=== PATIENT | male | born 1940 | race Caucasian/White ===

== ENCOUNTER → 2024-01-06 13:54 | Outpatient (REF) | payer MEDICARE, OTHER, SELFPAY | LOC: DHCBC HW 13:54 | PROVIDERS: ATTENDING PHYSICIAN Internal Medicine; FAMILY PHYSICIAN Internal Medicine | DX: I25.10 Atherosclerotic heart disease of native coronary artery without angina pectoris (principal); I10 Essential (primary) hypertension; I44.0 Atrioventricular block, first degree; E11.59 Type 2 diabetes mellitus with other circulatory complications | CPT/HCPCS: 93306 ==

== ENCOUNTER 2024-07-05 07:24 | Inpatient (IN) | payer MEDICARE, OTHER, SELFPAY ==
[2024-07-03 23:10] VITALS: BP 130/64
[2024-07-03 23:21] VITALS: BP 129/68
--- NOTE | 2024-07-03 23:29 | ED.GENMED ---
History of Present Illness
General
Chief Complaint: Chest Pain
Source: patient and spouse
Exam Limitations: none
Time Seen by Provider: 07/03/24 23:14
History of Present Illness
History of Present Illness:
83-year-old male complaining of intermittent chest pain. Started this evening after being outside but occurred at rest. Lasted about an hour waxing and waning. At 1 point did radiate to the left shoulder. Eventually relieved with nitroglycerin
per the . In hindsight he has been complaining of some intermittent episodes the last few days. Currently asymptomatic
Past History
Past History
ED Past Medical History: CAD, HTN, Hypercholesterolemia, NIDDM, Hypothyroidism and Other (Cervical and lumbar DJD)
ED Past Surgical History: Cardiac (PTCA with stent to the RCA 2000)
Social History
Tobacco: Non-smoker
Alcohol: None
Drug: None
Personal:
Living: with family
Employment: Retired
Family History
Family History: Other (Noncontributory)
Review of Systems
Review of Systems
All Other Systems: Not applicable
Constitutional: Denies fever
Respiratory: Denies cough or trouble breathing
Cardiac: Reports palpitations
Phy Exam
Physical Exam
Physical Exam:
GENERAL: Alert and oriented in no apparent distress
EYE: Orbits normal.
NECK: Supple, no thyroid palpable
ENT: Pharynx without erythema
CARDIAC: Regular rate and rhythm without any obvious murmurs.
LUNGS: Clear breath sounds,normal
ABDOMEN: Soft, without focal tenderness or distention
NEUROLOGICAL: Alert and oriented , grossly non-focal
SKIN: Warm and dry, no rash or lesion, no discoloration, skin intact.
MUSCULOSKELETAL: No edema,no deformity.Good color
PSYCH: Normal and appropriate interaction.
Scores
Heart Score for Chest Pain Patients
STEMI patient?: No
History: Moderately Suspicious
ECG: Normal
Age: >/= 65 years
Risk Factors: >/= 3 Risk Factors or History of CAD
Troponin: </= Normal Limit
Heart Score for Chest Pain Patients: 5
Heart Score Risk: 20.3% MACE over next 6 weeks
Course
Orders/Labs/Results
Orders:
Orders
07/03/24 22:59
Electrocardiogram (*1) Urgent
Reason for Study: Chest Pain
EKG- Treatment ONCE
07/03/24 23:29
CXR2 [CR Chest - 2 Views ] Urgent
Comment:
Reason For Exam: cp
07/03/24 23:33
CMP [Comprehensive Metabolic Panel] Urgent
Complete Blood Count/With Diff Urgent
Troponin I Urgent
Abnormal Lab Results
07/03/24
23:33
RBC 3.43 L 10^6/uL
(4.70-6.10)
Hgb 10.9 L g/dL
(13.0-18.0)
Hct 31.2 L %
(39.0-52.0)
MCH 31.8 H pg
(27.0-31.0)
MPV 10.5 H fL
(7.4-10.4)
Monocytes % 11.1 H %
(1.7-9.3)
07/03/24 23:33
Vital Signs
Initial and Last Documented VS:
Initial Vital Signs
Temp Pulse Resp BP Pulse Ox
97.8 F 82 22 130/64 99
07/03/24 23:10 07/03/24 23:10 07/03/24 23:10 07/03/24 23:10 07/03/24 23:10
Last Documented Vital Signs
Temp Pulse Resp BP Pulse Ox
97.8 F 74 14 132/59 99
07/03/24 23:10 07/04/24 00:01 07/04/24 00:01 07/04/24 00:00 07/04/24 00:01
MDM/Problems Addressed
Differential Diagnosis Includes:
Patient with intermittent chest pain for 3 days. Seems typically progressing in frequency and duration this evening. Also relieved with nitroglycerin. Previous cardiac stenting. EKG shows no ischemic changes but does have a junctional with
retrograde conduction. Warrants inpatient management
*Radiology
Radiology exam reviewed: preliminary read by ED provider (Negative)
*Pulse Oximetry
Patient hypoxic: no
*EKG
Interpreted by ED Provider?: Yes
Interpretation: abnormal
Comparison EKG: changes noted
Heart Rate: 88
Rate: normal
Rhythm: other (Junctional with retrograde conduction)
Hubertus: normal axis
Interval: normal interval
QRS Pattern: normal QRS
Ischemia: no ischemia
*Bridges Supervisor Interpretation
Rate: normal
Interpretation: abnormal
Heart Rate: 88
Rhythm: other (Junctional)
*Critical Care Note
Total Time (30-74mins, 75-104mins- exclusive of procedures): Not Applicable
Data Reviewed
Review of Other/Old Records Reveals: Labs, Records and Testing
ED Attending Note
-
Portions of this chart may have been created with voice recognition software.� Occasional wrong word or��sound alike� substitutions may have occurred due to the inherent limitations of voice recognition software.
Discharge Plan
Departure
Prescriptions:
No Action
metoprolol succinate 50 MG tablet extended release 24 hr
50 mg PO HS
pioglitazone 45 MG tablet
45 mg PO DAILY
simvastatin 40 MG tablet
40 mg PO HS
gemfibrozil 600 MG tablet
600 mg PO BID
Patient Comments:
PT TAKES AT 1100 AND 2100
metformin 1,000 MG tablet
1,000 mg PO BID@0800,1700
glipizide 5 MG tablet
5 mg PO DAILY
sitagliptin phosphate [Januvia] 100 MG tablet
100 mg PO DAILY
nitroglycerin 0.4 MG tablet, sublingual
0.4 mg sublingual [id number] PRN (Reason: cp)
pyridoxine (vitamin B6) 100 MG tablet
100 mg PO DAILY
cholecalciferol (vitamin D3) [Vitamin D3] 2,000 UNIT capsule
2,000 unit PO DAILY
Referrals:
Irving Casanova MD [Family Provider] -
Interventions
Interventions:
*Risk Screen - Suicide Last Done: 07/03/24 23:10
*Neglect/Abuse Screening Last Done: 07/03/24 23:10
ED- Fall Risk Assessment Last Done: 07/03/24 23:32
ED- Cardiac Assessment Last Done: 07/03/24 23:32
Discharge Date and Time
Print Language: [place]
[2024-07-03 23:39] LABS: % Eosinophils 1.2 % (0-6); % Immature Granulocytes 0.2 % (0-0.5); % Lymphocytes 29.3 % (20.5-51.1); % Monocytes 11.1 % (1.7-9.3); % Neutrophils 57.2 % (42.2-75.2); Absolute Basophils 0.1 10^3/uL (0-0.2); Absolute Eosinophils 0.1 10^3/uL (0-0.7); Absolute Lymphocytes 1.4 10^3/uL (1.2-3.4); Absolute Monocytes 0.5 10^3/uL (0.1-0.6); Absolute Neutrophils 2.8 10^3/uL (1.4-6.5); Hematocrit 31.2 % (39.0-52.0); Hemoglobin 10.9 g/dL (13.0-18.0); Mean Corp Hgb Conc. 34.9 g/dL (33.0-37.0); Mean Corpuscular Hgb 31.8 pg (27.0-31.0); Mean Platelet Volume 10.5 fL (7.4-10.4); Nucleated Red Blood Cells % 0 % (-); Platelet Count 152 10^3/uL (130-400); Red Blood Cell Count 3.43 10^6/uL (4.70-6.10); Red Cell Dist. Width 13.2 % (11.5-14.5); White Blood Cell Count 4.9 10^3/uL (4.8-10.8)
[2024-07-04] VITALS (19 sets, daily range): BP systolic 110–147; BP diastolic 51–106; BMI 22.9
[2024-07-04 00:06] LABS: Troponin I 0.014 ng/ml
[2024-07-04 00:20] LABS: ALT (SGPT) 12 U/L (0-50); AST (SGOT) 19 U/L (17-59); Albumin 4.5 g/dl (3.5-5.0); Alkaline Phosphatase 63 U/L (38-126); Blood Urea Nitrogen 33 mg/dl (9-20); Calcium 9.3 mg/dl (8.4-10.2); Carbon Dioxide 21 mmol/L (22-30); Chloride 104 mmol/L (98-107); Glucose 226 mg/dl (70-99); Sodium 136 mmol/L (135-145); Total Bilirubin 0.4 mg/dl (0.2-1.3); eGFR 34.57
--- NOTE | 2024-07-04 00:25 | ED.GENMED ---
History of Present Illness
General
Chief Complaint: Chest Pain
Time Seen by Provider: 07/03/24 23:14
History of Present Illness
History of Present Illness:
Intermittent chest pain x 3 days. Tonight's occurred after working outside. Some radiation of the left arm. Relieved with nitroglycerin
Past History
Past History
ED Past Medical History: CAD, HTN, Hypercholesterolemia, NIDDM, Hypothyroidism and Other (Cervical and lumbar DJD)
ED Past Surgical History: Cardiac (PTCA with stent to the RCA 2000)
Social History
Tobacco: Non-smoker
Alcohol: None
Drug: None
Personal:
Living: with family
Employment: Retired
Family History
Family History: Other (Noncontributory)
Review of Systems
Review of Systems
All Other Systems: Not applicable
Respiratory: Denies trouble breathing
Phy Exam
Physical Exam
Physical Exam:
GENERAL: Alert and oriented in no apparent distress
EYE: Orbits normal.
NECK: Supple, no significant adenopathy.
ENT: Pharynx without erythema
CARDIAC: Regular rate and rhythm without any obvious murmurs.
LUNGS: Clear breath sounds,normal
ABDOMEN: Soft, without focal tenderness or distention
NEUROLOGICAL: Alert and oriented , grossly non-focal
SKIN: Warm and dry, no rash or lesion, no discoloration, skin intact.
MUSCULOSKELETAL: No edema,no deformity.Good color
PSYCH: Normal and appropriate interaction.
Scores
Heart Score for Chest Pain Patients
STEMI patient?: No
History: Moderately Suspicious
ECG: Normal
Age: >/= 65 years
Risk Factors: >/= 3 Risk Factors or History of CAD
Troponin: </= Normal Limit
Heart Score for Chest Pain Patients: 5
Heart Score Risk: 20.3% MACE over next 6 weeks
Course
Orders/Labs/Results
Orders:
Orders
07/03/24 22:59
Electrocardiogram (*1) Urgent
Reason for Study: Chest Pain
EKG- Treatment ONCE
07/03/24 23:29
CXR2 [CR Chest - 2 Views ] Urgent
Comment:
Reason For Exam: cp
07/03/24 23:33
CMP [Comprehensive Metabolic Panel] Urgent
Complete Blood Count/With Diff Urgent
Troponin I Urgent
Abnormal Lab Results
07/03/24
23:33
RBC 3.43 L 10^6/uL
(4.70-6.10)
Hgb 10.9 L g/dL
(13.0-18.0)
Hct 31.2 L %
(39.0-52.0)
MCH 31.8 H pg
(27.0-31.0)
MPV 10.5 H fL
(7.4-10.4)
Monocytes % 11.1 H %
(1.7-9.3)
Carbon Dioxide 21 L mmol/L
(22-30)
BUN 33 H mg/dl
(9-20)
Creatinine 1.9 H mg/dL
(0.7-1.3)
Glucose 226 H mg/dl
(70-99)
07/03/24 23:33
07/03/24 23:33
Vital Signs
Initial and Last Documented VS:
Initial Vital Signs
Temp Pulse Resp BP Pulse Ox
97.8 F 82 22 130/64 99
07/03/24 23:10 07/03/24 23:10 07/03/24 23:10 07/03/24 23:10 07/03/24 23:10
Last Documented Vital Signs
Temp Pulse Resp BP Pulse Ox
97.8 F 74 14 132/59 99
07/03/24 23:10 07/04/24 00:01 07/04/24 00:01 07/04/24 00:00 07/04/24 00:01
MDM/Problems Addressed
Differential Diagnosis Includes:
Intermittent chest pain more progressive today. Has been going on for 3 days. Relieved with nitroglycerin. Some radiation of the left arm. Suspicious for angina. Admission for further care
*Critical Care Note
Total Time (30-74mins, 75-104mins- exclusive of procedures): Not Applicable
Data Reviewed
Review of Other/Old Records Reveals: Labs, Records and Testing
ED Attending Note
-
Portions of this chart may have been created with voice recognition software.� Occasional wrong word or��sound alike� substitutions may have occurred due to the inherent limitations of voice recognition software.
Discharge Plan
Departure
Patient Disposition: Admit
Date of Disposition: 07/04/24
Time of Disposition: 00:25
Admit to: Telemetry
Presentation/result/management discussed w/ accepting MD/DO: Hospitalist
Discharge Problem:
Possible unstable angina, History of cardiac stenting, Renal insufficiency
Prescriptions:
No Action
metoprolol succinate 50 MG tablet extended release 24 hr
50 mg PO HS
pioglitazone 45 MG tablet
45 mg PO DAILY
simvastatin 40 MG tablet
40 mg PO HS
gemfibrozil 600 MG tablet
600 mg PO BID
Patient Comments:
PT TAKES AT 1100 AND 2100
metformin 1,000 MG tablet
1,000 mg PO BID@0800,1700
glipizide 5 MG tablet
5 mg PO DAILY
sitagliptin phosphate [Januvia] 100 MG tablet
100 mg PO DAILY
nitroglycerin 0.4 MG tablet, sublingual
0.4 mg sublingual [id number] PRN (Reason: cp)
pyridoxine (vitamin B6) 100 MG tablet
100 mg PO DAILY
cholecalciferol (vitamin D3) [Vitamin D3] 2,000 UNIT capsule
2,000 unit PO DAILY
Referrals:
Irving Casanova MD [Family Provider] -
Interventions
Interventions:
*Risk Screen - Suicide Last Done: 07/03/24 23:10
*Neglect/Abuse Screening Last Done: 07/03/24 23:10
ED- Fall Risk Assessment Last Done: 07/03/24 23:32
ED- Cardiac Assessment Last Done: 07/03/24 23:32
Discharge Date and Time
Print Language: FRISIAN
--- NOTE | 2024-07-04 03:14 | HPS.HSE ---
Family Physician
-
Family Physician: Irving Casanova
Chief Complaint
-
Chest Pain
History of Present Illness
83yo M with PMH CAD s/p STEVEN to RCA (2000), HTN, HLD, DM2, Hypothyroidism, GERD who presents to ER with chest pain. Pt is czech speaking. at bedside aids in HPI. Pt was doing outdoor simple garden work around 5pm. After coming inside he felt
left sided chest pain radiation to left arm around 8-8:30pm. Pt took SL nitro which relieved symptoms. Pt does state he has felt his heart racing on and off over the last 3 days. Denies associated SOB, dizziness/LH, diaphoresis, N/V. Denies LE
edema. No recent med changes. does state he occasionally forgets his medications or accidentally takes two doses of one. Last Nuc Stress 07/2023 (-) with no further recs as per cryptologic technician technical Dr. Doherty
ER course: Pt presents with V.S.S. Hgb 10.9 g/dL. Na 136. BUN/Cr 33/1.9, BG 226. Trop 0.014. EKG junctional rhythm @ 88bpm, no ST/Twave changes. Ordered ASA 324mg.
Medical History
Past Medical History
Past Medical History: Reports Other (CAD s/p STEVEN to RCA (2000), HTN, HLD, DM2, Hypothyroidism, GERD )
Past Surgical History: Reports Other (RCA stent (2000))
Social History
Tobacco: Former Smoker (Quit smoking 40 yrs ago)
Alcohol: None
Drug: None
Personal:
Living: With Family
Family History
Family History: Other (Mother with CAD s/p NC. Father with CAD and possible CVA)
Allergies / Home Medications
Allergies reflects when Allergies were last updated in [facility].
Home Medications with original date entered in [facility]
Allergy/Medication List:
Allergies
Allergy/AdvReac Type Severity Reaction Status Date / Time
peanut Allergy Pharmacy Verified 07/03/24 23:13
to Review
Home Medications
gemfibrozil 600 mg tablet 600 mg PO BID 10/15/12
glipizide 5 mg tablet 5 mg PO DAILY 10/15/12
metformin 1,000 mg tablet 1,000 mg PO DAILY 10/15/12
metoprolol succinate 50 mg tablet,extended release 24 hr 50 mg PO HS 10/15/12
pioglitazone 45 mg tablet 45 mg PO DAILY 10/15/12
sitagliptin phosphate 100 mg tablet (Januvia) 100 mg PO DAILY 10/15/12
cholecalciferol (vitamin D3) 50 mcg (2,000 unit) capsule (Vitamin D3) 2,000 unit PO DAILY 12/28/17
nitroglycerin 0.4 mg sublingual tablet 0.4 mg sublingual [id number] PRN cp 12/28/17
pyridoxine (vitamin B6) 100 mg tablet 100 mg PO DAILY 12/28/17
amlodipine 5 mg tablet 5 mg PO DAILY 07/04/24
ascorbic acid (vitamin C) 500 mg tablet (Vitamin C) 500 mg PO DAILY 07/04/24
aspirin 81 mg tablet 81 mg PO DAILY 07/04/24
cyanocobalamin (vitamin B-12) 100 mcg tablet 100 mcg PO DAILY 07/04/24
famotidine 40 mg tablet 40 mg PO DAILY 07/04/24
ferrous sulfate 325 mg (65 mg iron) tablet 325 mg PO DAILY 07/04/24
levothyroxine 50 mcg tablet 50 mcg PO DAILY 07/04/24
lisinopril 5 mg tablet 5 mg PO DAILY 07/04/24
pantoprazole 20 mg tablet,delayed release 20 mg PO DAILY 07/04/24
rosuvastatin 40 mg tablet 40 mg PO DAILY 07/04/24
vitamin A 3,000 mcg (10,000 unit) capsule 150 mcg PO DAILY 07/04/24
Review of Systems
-
A 12 point ROS was completed and negative except as noted: Yes
Physical Exam
Vital Signs
Vital Signs
Temp Pulse Resp BP Pulse Ox
98 F 61 15 129/56 97
07/04/24 02:00 07/04/24 03:00 07/04/24 03:00 07/04/24 03:00 07/04/24 03:00
Physical Exam
General: Well Developed, Well Nourished and No Apparent Distress
HEENT: NormoCephalic, Moist mucous membranes and Atraumatic
Respiratory: Clear
Cardiac: S1/S2, Regular Rhythm and Other (No reproducible chest tenderness. ); No Murmur or Rub
GI: Soft, Non Tender, Non Distended and Normal Bowel Sounds; No Organomegaly
Rectal: Deferred by Provider
Genito-urinary: No costovertebral tender; No [place]
Musculoskeletal: No Clubbing, No Cyanosis and No Edema
Skin: No Rash
Neuro: Awake, Alert, Oriented, AO x 3, No Motor Deficits and Nonfocal/grossly intact
Psych: Calm
Laboratory Results
-
07/03/24 23:33
07/03/24 23:33
Laboratory Results
Total Bilirubin 0.4 mg/dl (0.2-1.3) 07/03/24 23:33
AST 19 U/L (17-59) 07/03/24 23:33
ALT 12 U/L (0-50) 07/03/24 23:33
Alkaline Phosphatase 63 U/L (38-126) 07/03/24 23:33
Troponin I 0.014 ng/ml 07/03/24 23:33
Data Reviewed
-
Diagnostic Radiology: Image Personally Visualized and interpreted
Medical Tests (Nuc Med, Echo, EKG etc): Image Personally Visualized and interpreted
Lab Data: Labs Reviewed by me
Old Records: Reviewed
Impression/Plan
-
Chest Pain / Hx CAD s/p Stent / HTN / HLD
- Pt reports left sided CP radiation to left shoulder with heart racing sensation after gardening work
- No other anginal equivalents. Appears atypical
- Nuc Stress 07/2023 (-) ischemia
- Last TTE 12/2023: Normal left ventricular size, wall thickness and systolic function.
LV ejection fraction is 60-65% . Mild mitral regurgitation. Compared to the previous0 05/13/2021 not appreciated on the current study diastolic dysfunction and increased filling pressures not reported on the current study
- S/P SL Nitro with relief. Continue prn
- S/P ASA 324mg. Continue 81mg daily
- Continue home amlodipine, BB, statin, gemfibrozil. LICO-I held 2/2 [place]
- Check Lipids/A1C
- NPO for possible ischemic eval. Cards consulted
Elevated Serum Creat
- BUN/Cr 33/1.9. Unclear baseline. Considerations include progression of CKD vs [place]
- Previous Cr 1.2-1.7
- Check UA and bladder scan for completeness
- NS @ 100cc/hr and trend.
- Holding nephrotoxics: LICO-I/Metformin/Glipizide
Hyperglycemia/DM2
- BG 226 on admission. reports A1C was 'fine' 1 month ago with PCP
- Check A1C. SSI/accuchecks
- Glipizide and Metformin held 2/2 [place]
- Continue home actos and januvia
Anemia - Hgb stable. Continue home iron supplementation.
Hypothyroidism - Continue home synthroid.
GERD - stable on pepcid.
DVT Ppx: Lovenox
Diet: NPO pending cards eval
Code Status: Full Code
[2024-07-04] MEDS: LOW STRENGTH ASPIRIN 324 MG PO (04:08)
[2024-07-04] MEDS: NSS 1000 IV ×2 (04:10→06:24)
[2024-07-04 05:09] LABS: Glucose - Point of Care 84 mg/dl (70-99)
[2024-07-04 05:55] LABS: HDL Cholesterol 83 mg/dl; LDL Cholesterol, Calculated 58 mg/dl; Total Cholesterol 154 mg/dl (50-199); Triglyceride 65 mg/dl (10-149); Very Low Density Lipoprotein 13 mg/dl (0-30)
[2024-07-04 06:07] LABS: Troponin I 0.014 ng/ml
[2024-07-04] MEDS: SYNTHROID 50 MCG PO (06:21)
--- NOTE | 2024-07-04 07:54 | PTCARENOTE ---
Pt admitted to unit from ED with IV fluids infusing. Pt ambulated to bed with nursing staff. Pt denies chest pain, SOB, difficulty breathing, dizziness, and lightheadedness. at bedside aids in admission. AAXO3. VS: Temp 97.3, Pulse 69, BP
122/68, Resp Rate 16, and O2 99 on RA. Pt oriented with call nguyen in reach. Plan of care ongoing.
--- NOTE | 2024-07-04 08:10 | CON.CAR ---
Addendum entered and electronically signed by Boris Dixon MD 07/04/24 09:45:
I saw and examined the patient.
The CUSTOMER ENGINEER's note was reviewed and I agree with the note.
Comment: 83-year-old male with coronary artery disease (RCA stenting and RPDA angioplasty 2000, moderate nonobstructive disease on cath in November 2017), first-degree AV block, hypertension, dyslipidemia, type 2 diabetes mellitus, CKD3a, and anemia
of chronic disease who presented with exertional chest pain yesterday relieved with nitro. This recurred when walking into the hospital. Currently he is chest pain-free. EKG showed sinus rhythm with primary AV conduction delay and PVC. First
troponin 0.14 next is pending. On exam he has a regular rate and rhythm normal S1-S2 lungs are clear to auscultation bilaterally abdomen is soft and nontender. Labs are notable for creatinine of 1.9. History concerning for progressive angina.
Recommend proceeding to cardiac catheterization given recent angelo with prior infarct and no ischemia. He is agreeable. Patient recieving IVF which we will continue for prehydration. Check echo.
Cath 11/2017:
CORONARY ANGIOGRAPHY
Dominance: Right
Left Main: Normal
LAD: The LAD is moderately calcified with long 30% proximal stenosis and focal 50-60% mid stenosis. The remainder of the LAD system has mild luminal disease.
Circumflex: Mild calcification with focal 30% proximal stenosis and otherwise mild luminal irregularities
RCA: Dominant and moderately calcified vessel with widely patent proximal and distal RCA stents with no restenosis (BMS 2000). There are tandem 50% mid RCA lesions. There is 40-50% ostial stenosis of the moderate-sized PDA. The balloon angioplasty
site in the RPDA from 2000 remains widely patent
Original Note:
Consultation
Consultation Request
Date/Time Consultation Requested: 07/04/2024 04:45
Date/Time Consultation Performed: 07/04/2024 08:30
Requesting Provider: Dr. Richardson
Performing Provider: BETHANIE Calhoun for Dr. Dixon
Reason for Consultation: Chest pain
Medical History
-
Chief Complaint: Chest pain
History of Present Illness:
Jhon Funk is an 83-year-old male with coronary artery disease (RCA stenting and RPDA angioplasty 2000), first-degree AV block, hypertension, dyslipidemia, type 2 diabetes mellitus, CKD3a, and anemia of chronic disease who presented to the
emergency department with a chief complaint of chest pain. He was gardening outdoors when he had left sided chest pressure. He went inside and took a sublingual nitroglycerin. He got full relief. He had never required nitroglycerin before so he
presented to the emergency department he denies associated symptoms of shortness of breath, dizziness, diaphoresis, and nausea. While presenting to the emergency department, he had left arm pain. Cardiology has been consulted. He has been chest
pain-free since admission. His EKG is stable. His troponin remains flat.
The patient speaks Bulgarian. I offered professional translation services but he preferred to use his .
Past Medical History
Past Medical History: CAD, HTN, Hypercholesterolemia, NIDDM and Renal Failure (CKD)
Social History
Tobacco: Former Smoker
Alcohol: None
Drug: None
Personal:
Living: With Family
Employment: Retired
Family History
Family History: Reviewed & Not Pertinent
Allergies / Home Medications
Allergy/AdvReac Type Severity Reaction Status Date / Time
peanut Allergy Pharmacy Verified 07/03/24 23:13
to Review
pneumococcal vaccine AdvReac Unknown Verified 07/04/24 06:00
�Medication �Instructions �Recorded �Confirmed �Type
gemfibrozil 600 mg tablet 600 mg PO BID 10/15/12 07/04/24 History
glipizide 5 mg tablet 5 mg PO DAILY 10/15/12 07/04/24 History
metformin 1,000 mg tablet 1,000 mg PO DAILY 10/15/12 07/04/24 History
metoprolol succinate 50 mg 50 mg PO HS 10/15/12 07/04/24 History
tablet,extended release 24 hr
pioglitazone 45 mg tablet 45 mg PO DAILY 10/15/12 07/04/24 History
sitagliptin phosphate 100 mg 100 mg PO DAILY 10/15/12 07/04/24 History
tablet (Januvia)
cholecalciferol (vitamin D3) 50 2,000 unit PO DAILY 12/28/17 07/04/24 History
mcg (2,000 unit) capsule (Vitamin
D3)
nitroglycerin 0.4 mg sublingual 0.4 mg sublingual [id number] PRN cp 12/28/17 07/04/24 History
tablet
pyridoxine (vitamin B6) 100 mg 100 mg PO DAILY 12/28/17 07/04/24 History
tablet
amlodipine 5 mg tablet 5 mg PO DAILY 07/04/24 07/04/24 History
ascorbic acid (vitamin C) 500 mg 500 mg PO DAILY 07/04/24 07/04/24 History
tablet (Vitamin C)
aspirin 81 mg tablet 81 mg PO DAILY 07/04/24 07/04/24 History
cyanocobalamin (vitamin B-12) 100 100 mcg PO DAILY 07/04/24 07/04/24 History
mcg tablet
famotidine 40 mg tablet 40 mg PO DAILY 07/04/24 07/04/24 History
ferrous sulfate 325 mg (65 mg 325 mg PO DAILY 07/04/24 07/04/24 History
iron) tablet
levothyroxine 50 mcg tablet 50 mcg PO DAILY 07/04/24 07/04/24 History
lisinopril 5 mg tablet 5 mg PO DAILY 07/04/24 07/04/24 History
pantoprazole 20 mg tablet,delayed 20 mg PO DAILY 07/04/24 07/04/24 History
release
rosuvastatin 40 mg tablet 40 mg PO DAILY 07/04/24 07/04/24 History
vitamin A 3,000 mcg (10,000 unit) 150 mcg PO DAILY 07/04/24 07/04/24 History
capsule
Review of Systems
-
History Source: Patient
All other systems: Negative unless noted
Constitutional: No Symptoms
EENT: No Symptoms
Respiratory: No Symptoms
Cardiac: No Symptoms
Abdomen/GI: No Symptoms
: No Symptoms
Musculoskeletal: No Symptoms
Skin: No Symptoms
Neurological: No Symptoms
Endocrine: No Symptoms
Hematologic/Lymphatic: No Symptoms
Physical Exam
Vital Signs
Temp Pulse Resp BP Pulse Ox
97.4 F 65 20 138/58 98
07/04/24 07:44 07/04/24 07:44 07/04/24 07:44 07/04/24 07:44 07/04/24 07:44
Lab Results
07/03/24 23:33
07/03/24 23:33
Troponin I 0.014 ng/ml 07/04/24 05:08
Physical Exam
General: Well Developed, Well Nourished, No Apparent Distress and Comfortable
HEENT: Normocephalic, Anicteric and Moist Mucous Membranes
Respiratory: Clear and Non Labored Respirations
Cardiac: S1/S2 and Regular Rhythm
Breast: Deferred by me
GI: Non Tender, Non Distended and Normal Bowel Sounds
Rectal: Deferred by Provider
Genito-urinary: No Costovertebral Tender
Musculoskeletal: No Clubbing, No Cyanosis and No Edema
Skin: Warm and Dry
Neuro: AO x 3
Hematologic/Lymphatic: No Lymphadenopathy
Psych: Calm
Impression / Plan
-
Progressive angina
-Chest pressure after gardening, relieved by SL nitroglycerin
-Currently chest pain-free
-Troponin flat
-Continue ASA
CAD
-RCA stent & RPDA angioplasty (2000)
-Continue ASA, beta richa and statin
HTN, BP at goal, continue current medical therapy
HLD, LDL 58 on rosuvastatin & gemfibrozil
CKD Stage 3, Bun/Creatinine 17/1.47 in Dec, 2023
NIDDM, Hgba1c 8.0% in November,, update Hgba1c
Data Reviewed
-
EKG: Report Reviewed by me (Sinus rhythm, first degree AV block, PACs, rate 66)
Medical Tests (Nuc Med, Echo etc): Report Reviewed by me (Prior echocardiogram as above)
Labs: Labs Reviewed by me
Old Records: Reviewed
[2024-07-04 08:33] LABS: Urine Albumin Negative (Neg - Trace); Urine Bilirubin Negative (Negative); Urine Character Clear (Clear); Urine Color Yellow; Urine Glucose 3+ (Negative); Urine Ketone Negative (Negative); Urine Leukocyte Negative (Negative); Urine Nitrite Negative (Negative); Urine Occult Blood Negative (Negative); Urine Urobilinogen Negative (Neg - 1+); Urine pH 6.5 (5.0-9.0)
[2024-07-04 09:17] LABS: Troponin I < 0.012 ng/ml
[2024-07-04] MEDS: VITAMIN B-12 PO (09:29)
[2024-07-04] MEDS: VITAMIN B-6 PO (09:30)
[2024-07-04] MEDS: VITAMIN C PO (09:30)
[2024-07-04] MEDS: VITAMIN D3 (cholecalciferol) PO (09:30)
[2024-07-04] MEDS: PEPCID PO (09:30)
[2024-07-04] MEDS: LOPID PO (09:30)
[2024-07-04] MEDS: CRESTOR PO (09:31)
[2024-07-04] MEDS: FEOSOL PO (09:31)
[2024-07-04] MEDS: NORVASC 5 MG PO (09:33)
[2024-07-04] MEDS: PROTONIX 20 MG PO (09:33)
[2024-07-04] MEDS: HEPARIN 5000 UNITS SC (09:33)
[2024-07-04 10:57] LABS: Glycohemoglobin (HgbA1c) 7.9 % (4.0-5.6)
[2024-07-04 11:29] LABS: Glucose - Point of Care 96 mg/dl (70-99)
--- NOTE | 2024-07-04 12:00 | W.PN.HOSP.TC ---
Today's Communication/Plan
-
Echocardiogram
BMP
IV fluids
Cardiac catheterization
Assessment / Plan
Assessment / Plan
Gen-AAOx3, NAD
HEENT-NC, AT, anicteric, clear oral mm
Neck-supple
CV-reg, no M, +S1/S2
Lungs-clear B/L
Abd-soft, NT, ND
Ext-no edema
Musculoskeletal-no cyanosis, clubbing
Skin-warm and dry
Neuro-grossly non-focal
Psych-calm, cooperative
Unstable angina -hemodynamically stable. Symptoms resolved. Troponins negative. N.p.o. for cardiac catheterization. Appreciate cardiology input.
CAD -with prior stenting to RCA in 2000.
CKD 3B -creatinine 1.9 on admission, suspect at baseline. Check creatinine today, monitor closely given plans for cardiac catheterization. Continue IV fluids.
Essential hypertension -stable.
DM2 with hyperglycemia -hemoglobin A1c 7.9%. We discussed the importance of tighter glucose control in light of his CAD and presentation with angina. He uses glipizide, metformin, Sitagliptin at home. Hold oral agents, use sliding scale insulin
for now.
Hyperlipidemia -continue rosuvastatin.
Hypothyroidism -continue levothyroxine.
Chronic normocytic anemia -will need outpatient follow-up.
GERD
Full code
Updated at the bedside. Patient speaks Farsi. 50 minutes spent reviewing records, speaking with patient and , discussing with other staff.
Anticipated Discharge: 24 - 48 hours
Subjective/Interval History
-
Date of Service: July 04, 2024
Patient seen/examined. No further chest pain in the hospital. at bedside. No complaints.
Objective Data
-
Labs:
Laboratory Results
07/03/24 07/04/24
23:33 11:32
Sodium 136 Pending
Potassium 5.0 Pending
Chloride 104 Pending
Carbon Dioxide 21 L Pending
BUN 33 H Pending
Creatinine 1.9 H Pending
Glucose 226 H Pending
Calcium 9.3 Pending
Total Bilirubin 0.4
AST 19
ALT 12
Alkaline Phosphatase 63
Vital Signs:
Vital Signs
Temp Pulse Resp BP Pulse Ox
98.2 F 76 18 147/67 98
07/04/24 11:18 07/04/24 11:18 07/04/24 11:18 07/04/24 11:18 07/04/24 11:18
I&O
07/03/24 07/04/24 07/05/24
06:59 06:59 06:59
Intake Total 220 / 220
Balance 220 / 220
Review of Systems
-
History Source: Patient
All other systems: Reviewed and negative
--- NOTE | 2024-07-04 12:24 | CM ---
Addendum entered by Ariana Newberry 07/04/24 15:38:
Patient needs DAMON form signed.
Original Note:
Patient seen at bedside with .
IA completed. Obtained by as patient primarily speaks Farsi
Dx: chest pain - went for echo & cardiac cath today.
Lives with in 2 story home 1 step into home & 12 steps too bed/bath.
Dr. Dyer spoke with & patiient in Farsi
CM to follow for any anticipated needs.
PCP: Marcial Washington
Pharmacy: [facility], [address], [place]
PLAN: Discharge to home when stable.
[2024-07-04 12:31] LABS: Blood Urea Nitrogen 27 mg/dl (9-20); Calcium 9.4 mg/dl (8.4-10.2); Carbon Dioxide 22 mmol/L (22-30); Chloride 106 mmol/L (98-107); Estimated Creatinine Clearance 37 ml/min; Glucose 94 mg/dl (70-99); Potassium 4.4 mmol/L (3.5-5.1); Sodium 137 mmol/L (135-145); eGFR 42.49
--- NOTE | 2024-07-04 13:51 | ITS.CL.ANGIO ---
Clinical Leader - Angioplasty
Angioplasty
Procedure Report:
CARDIAC CATHETERIZATION REPORT
Date of Procedure: 07/04/2024
Referring: Mary Dixon M.D.
INDICATION: Unstable angina/acute coronary syndrome.
PROCEDURE:
1. Left heart catheterization.
2. Coronary angiography.
3. Successful IVUS guided PCI of the proximal LAD.
ACCESS:
6 [place] right radial artery using a modified Seldinger technique under ultrasound guidance.
CATHETERS:
1. 6 [place] JR 5.
2. 5 Trin[place] JL 3.5.
3. 6 [place] EBU 3.5 guiding catheter.
HEMODYNAMIC DATA
Weight (kg): 73.9
AO (s/d/x, mmHg): 111/53/78
LV (s/x mmHg): 111/10
LEFT VENTRICULOGRAPHY: Not performed.
CORONARY ANGIOGRAPHY
Dominance: Right.
Left Main: Short, bifurcating vessel. There is no obvious atherosclerotic disease.
LAD: Normal size vessel giving rise to 1 significant diagonal. There is a culprit, hazy, 90% lesion in the proximal margin of the LAD, less than 2 mm from the LAD ostium. There is a modest length, 40% lesion within the proximal LAD. There is a
discrete, 40% lesion in the mid LAD, after the origin of the diagonal. There are minor luminal irregularities elsewhere.
Ramus: Congenitally absent.
Circumflex: Normal size, nondominant vessel that is essentially a single large obtuse marginal. The obtuse marginal bifurcates into a larger upper branch and a medium size lower branch. There is a 20-30% lesion in the proximal circumflex,
immediately preceding the bifurcation and the obtuse marginal.
RCA: Large size, dominant vessel with an anterior takeoff that could not be selectively engaged. There is a 50% lesion in the ostium of the vessel. There is a patent stent in the proximal RCA with 10-20% proximal in-stent restenosis. There is
an eccentric, 70% lesion in the mid RCA, juxtaposed to the origin of the acute marginal. There are tandem 30 and 40% lesions throughout the remainder of the distal RCA and into the RPDA. A patent stent is observed from the distal RCA into the
right posterior lateral branch, jailing the origin of the RPDA but maintaining JESSE-3 flow throughout.
INTERVENTION(S)
1. Successful IVUS guided PCI of the 90% proximal LAD lesion (Medtronic [place] 3.0 x 18 STEVEN, postdilated with a 3.25 NC balloon) with reduction in stenosis to 0%, maintaining JESSE-3 flow.
Narrative:
The decision was made to proceed with percutaneous coronary intervention. The diagnostic catheter was removed over a wire and a 6Fr EBU 3.5 guiding catheter was advanced to the aortic root and seated in the left main coronary artery. Additional
heparin was given and a Power Turn Flex wire was advanced into the distal LAD. The 90% proximal LAD lesion was predilated with a 2.0 x 12 semi-compliant balloon to 12 ga.
The decision was made to perform intracoronary imaging. An IVUS catheter was advanced through the guiding catheter and into the ostium of the artery. Ring down was performed once the imaging crystal was no longer inside of the guiding catheter. The
IVUS catheter was advanced into the proximal LAD, beyond the lesion in question. Intravascular ultrasound was performed in a retrograde fashion using a slow pullback. Intracoronary imaging demonstrated an island of normal coronary tissue beyond the
lesion in question with extension of the lesion to the true ostium of the LAD.
The IVUS catheter was removed and a Medtronic [place] 3.0 x 18 drug-eluting stent was advanced. Meticulous care was taken while positioning the stent. There was significant translational motion given the patient's heartbeat and breathing.
The stent was deployed at 12 atmospheres. The stent balloon was removed. A 3.25 x 12 noncompliant balloon was advanced into the stent and the distal stent was postdilated to 15 atmospheres. The proximal stent margin was postdilated to 18 ag.
IVUS was repeated demonstrating excellent stent expansion and apposition with no evidence of dissection. IVUS did confirm that part of the circumflex ostium was jailed by the stent, but this was an incomplete jailing with JESSE-3 flow down the
vessel. The IVUS catheter was withdrawn.
Angiography was performed in orthogonal views, confirming good stent expansion and an excellent angiographic result. The coronary wire was withdrawn and the guide was disengaged from the artery. The catheter was removed over a standard J-wire.
Closure Device: Vascular band.
Radiation (mGy): 972.52
DAP (cm2.Gy): 74.1673
Fluoroscopy time (minutes): 21.3
Sedation time (minutes): 82
CONCLUSIONS
1. Right dominant circulation with an RCA with an anterior takeoff that could not be selectively engaged with a 50% lesion in the ostium, patent proximal stent with 10-20% in-stent restenosis, and eccentric 70% mid RCA lesion, luminal
irregularities throughout the remainder of the RCA with a patent stent jailing the RPDA but maintaining JESSE-3 flow, a 20-30% lesion in the proximal circumflex at the bifurcation of the obtuse marginal, a 40% lesion in the mid LAD after the origin
of the primary diagonal and a culprit, 90% proximal LAD lesion, status post successful IVUS guided PCI (Medtronic [place] 3.0 x 18 STEVEN, postdilated with a 3.25 NC balloon) with reduction in stenosis to 0%, maintaining JESSE-3 flow.
2. Normal filling pressures (LVEDP = 10 mmHg at 73.9 kg).
RECOMMENDATIONS:
1. Expectant management after cardiac catheterization via right radial approach.
2. Limited weight bearing on the right for one week.
3. Dual antiplatelet therapy with aspirin and ticagrelor for at least 12 months, followed by aspirin indefinitely.
4. Guideline directed medical therapy as hemodynamics will tolerate. No role for diuretics at this time.
5. Aggressive secondary prevention with high-dose, high potency statin. Goal LDL <55.
6. Echocardiogram ordered and pending.
7. Referral to cardiac rehab.
8. Consideration for staged PCI of the RCA, depending on symptoms and in consultation with outpatient primary cardiology.
Copy to: Jimenez Phipps M.D., Ph.D., Irving Casanova M.D.
Dwayne Veloz DO, FACC, FACP
--- NOTE | 2024-07-04 14:30 | PTCARENOTE ---
Rec'd report from Jennifer in the collaborating supervising physician; Rec'd pt from collaborating supervising physician AAOx3 w/no c/o CP or SOB. Pt w/R radial band in place w/no signs or symptoms of bleeding or hematoma. VS stable w/HR in the 70's & most recent BP 129/56. Pt is SR on telemetry
monitoring. Pt's speaks Farsi but able to make needs known using varnish melter & pt's spouse, who speaks very good British at bedside. Pt's fingerstick glucose was 104. Pt asking for some apple juice & placed lunch order for pt. Pt w/call nguyen
within reach & plan of care ongoing.
[2024-07-04 14:34] LABS: Glucose - Point of Care 104 mg/dl (70-99)
[2024-07-04] MEDS: HEPARIN SC (16:28)
--- NOTE | 2024-07-04 18:12 | PTCARENOTE ---
Pt w/2nd small puncture site above R band placement, which has oozed slightly since pt arrived to floor. As air was being removed from band that 2nd site had increasing swelling & oozing. All air removed from band & while band was attempted to be
removed cath insertion site started to squirt blood. Manual pressure applied immediately & bleeding continued after 15 mins of manual pressure. R band replaced rapidly w/8 cc of air with band covering cath puncture site and secondary wound
simultaneously. Bleeding controlled at this time. Pt's RUE elevated on 2 pillows. Pt advised to limit movement of R wrist while band is in place. Call nguyen within reach & spouse at bedside. Plan of care ongoing.
[2024-07-04 19:29] LABS: Glucose - Point of Care 220 mg/dl (70-99)
[2024-07-04] MEDS: NOVOLOG FLEXPEN-LOW RESISTANCE 2 UNITS SC (19:58)
[2024-07-04] MEDS: LOPID 600 MG PO (20:33)
[2024-07-04 22:34] LABS: Glucose - Point of Care 172 mg/dl (70-99)
[2024-07-04] MEDS: TOPROL XL 50 MG PO (22:38)
[2024-07-04] MEDS: BRILINTA 90 MG PO (22:39)
[2024-07-05 02:35] VITALS: BP 125/59
[2024-07-05 02:55] LABS: Hematocrit 33.9 % (39.0-52.0); Hemoglobin 11.9 g/dL (13.0-18.0); Mean Corp Hgb Conc. 35.1 g/dL (33.0-37.0); Mean Corpuscular Hgb 32.4 pg (27.0-31.0); Mean Corpuscular Volume 92.4 fL (80.0-94.0); Platelet Count 160 10^3/uL (130-400); Red Blood Cell Count 3.67 10^6/uL (4.70-6.10); Red Cell Dist. Width 12.9 % (11.5-14.5)
[2024-07-05 03:15] LABS: Blood Urea Nitrogen 25 mg/dl (9-20); Calcium 9.7 mg/dl (8.4-10.2); Carbon Dioxide 24 mmol/L (22-30); Chloride 106 mmol/L (98-107); Estimated Creatinine Clearance 45 ml/min; Glucose 107 mg/dl (70-99); Potassium 4.7 mmol/L (3.5-5.1); Sodium 139 mmol/L (135-145); eGFR 54.51
--- NOTE | 2024-07-05 03:30 | PTCARENOTE ---
Rec'd pt at change of shift post heart cath. Pt on heart monitor in NSR with 1st degree heart-block and occasional monomorphic PVC's. 2nd attempt at removing right radial-band successful. Ecchymosis noted on right wrist from procedure, no
hematoma noted. Pulses present and equal in both upper extremities. Rn educated pt and to watch for bleeding at site and call immediately for help if detected. RN placed pt on bed alarm for pt safety. Pt resting in bed with RUE elevated and
call nguyen within reach. Plan of care ongoing.
[2024-07-05 06:00] VITALS: BMI 22.5
[2024-07-05] MEDS: SYNTHROID 50 MCG PO (06:18)
[2024-07-05 06:56] VITALS: BP 142/51
--- NOTE | 2024-07-05 07:29 | W.PN.UPDATE ---
Update Note
Progress Note Update
POST PCI FOLLOW UP
07/04/24 - Successful IVUS guided PCI of the 90% proximal LAD lesion (Medtronic [place] 3.0 x 18 STEVEN, postdilated with a 3.25 NC balloon)
No CP, SOB
Rad site moderate ecchymosis, no HT, good pulse
tele - SR/SB 1deg AVB, multiple PVC's and 7b NSVT o/n
DAPT ASA/Brilinta - CM to eval cost
07/05/24 02:33
07/05/24 02:33
Plan: Hold Metformin 48 hours post procedure
f/u Cardiology 08/04 1pm
[2024-07-05 07:55] LABS: Glucose - Point of Care 112 mg/dl (70-99)
[2024-07-05] MEDS: NOVOLOG FLEXPEN-LOW RESISTANCE SC (08:27)
--- NOTE | 2024-07-05 08:29 | PTCARENOTE ---
Assumed care of pt from prev nsg shift; Pt AAOx3, appears mildly forgetful this am w/no c/o CP or SOB. Pt placed on bed alarm overnight for safety. Pt w/R radial site w/dressing C/D/I w/no signs or symptoms of bleeding or hematoma; site is very
ecchymotic. VS stable w/HR in the 60's & most recent BP 142/51. Pt is SR w/1st deg AV block on telemetry monitoring. Pt's speaks Farsi but able to make needs known using anatomy and physiology instructor & pt's spouse, who speaks very good Bruneian & is present at bedside.
D/C planning discussed w/pt & spouse. Pt w/call nguyen within reach & plan of care ongoing.
[2024-07-05] MEDS: VITAMIN B-6 100 MG PO (08:59)
[2024-07-05] MEDS: VITAMIN C 500 MG PO (08:59)
[2024-07-05] MEDS: VITAMIN D3 (cholecalciferol) 50 MCG PO (08:59)
[2024-07-05] MEDS: FEOSOL 325 MG PO (08:59)
[2024-07-05] MEDS: NORVASC 5 MG PO (08:59)
[2024-07-05] MEDS: VITAMIN B-12 100 MCG PO (08:59)
[2024-07-05] MEDS: LOW STRENGTH ASPIRIN 81 MG PO (08:59)
[2024-07-05] MEDS: PEPCID 40 MG PO (08:59)
[2024-07-05] MEDS: LOPID 600 MG PO (08:59)
[2024-07-05] MEDS: PROTONIX 20 MG PO (08:59)
[2024-07-05] MEDS: CRESTOR 40 MG PO (08:59)
[2024-07-05] MEDS: BRILINTA 90 MG PO (09:00)
--- NOTE | 2024-07-05 09:53 | W.PN.CD ---
Today's Communication / Plan
-
1. add zetia for goal LDL<55; 2. check ticagrelor for cost
Impression / Plan
-
83-year-old male with coronary artery disease (RCA stenting and RPDA angioplasty 2000, moderate nonobstructive disease on cath in November 2017), first-degree AV block, hypertension, dyslipidemia, type 2 diabetes mellitus, CKD3a, and anemia of
chronic disease who presented with exertional angina and NSTEMI w mild troponin elevation, with coronary angiography demonstrating new culprit lesion in the proximal LAD, now status post successful IVUS-guided PCI to LAD. Currently he is chest
pain-free with clean radial access site. Exam notable for stable access site, clearn lungs, and normal heart sounds without murmur. Labs notable for improving Cr and stable Hb. Echo pre-cath demonstrated now wall motion abnormalities.
CAD; NSTEMI s/p PCI to LAD
1. Limited weight bearing on the right arm for one week.
2. Dual antiplatelet therapy with aspirin and ticagrelor for at least 12 months, followed by aspirin indefinitely. Please check ticagrelor for cost (alternative would be clopidogrel)
3. Aggressive secondary prevention of CAD with high-dose, high potency statin. Goal LDL <55.
4. Referral to cardiac rehab.
5. If ongoing anginal symptoms, consideration for staged PCI of the RCA.
6. Follow up with primary housing quality standard inspector, Alfred Phipps.
HTN - BP at goal, continue current medical therapy
HLD - LDL 58 on rosuvastatin & gemfibrozil, add zetia for goal LDL<55
CKD Stage 3 - BUN/Cr improving
NIDDM - Hgba1c 7.9%, continue current therapy
Physical Exam
Vital Signs/Labs
Vital Signs
Temp Pulse Resp BP Pulse Ox
36.6 C 60 18 142/51 98
07/05/24 06:54 07/05/24 07:00 07/05/24 06:54 07/05/24 06:56 07/05/24 06:54
07/04/24 07/05/24 07/06/24
06:59 06:59 06:59
Actual Weight 74.298 kg 73.3 kg
07/05/24 02:33
07/05/24 02:33
Triglycerides 65 mg/dl (10-149) 07/04/24 05:08
LDL Cholesterol, Calc 58 mg/dl 07/04/24 05:08
VLDL Cholesterol, Calc 13 mg/dl (0-30) 07/04/24 05:08
HDL Cholesterol 83 mg/dl 07/04/24 05:08
LAB Results
07/03/24 07/04/24 07/04/24
23:33 05:08 08:40
Troponin I 0.014 0.014 < 0.012
Physical Exam
Constitutional: No acute distress
Cardiovascular: Rhythm & rate is regular, Pedal edema is absent, Systolic murmur absent and Diastolic murmur absent
Respiratory: Respiratory effort normal, Lungs clear to auscul., Wheeze Absent, Crackles Absent and Rhonchi Absent
GI: Soft and Non tender
Neuro/Psych: Alert, Oriented and AO x 3
Other: Cath Site (cdi)
Data Reviewed
-
Date of Service: July 05, 2024
Medical Decision Making: External Notes and Reviewed Test Results
EKG: Tracing Personally Visualized and interpreted
Echo: Report Reviewed by me
Labs: Labs Reviewed by me
--- NOTE | 2024-07-05 09:54 | W.PN.HOSP.TC ---
Today's Communication/Plan
-
Discharge
Assessment / Plan
Assessment / Plan
Gen-AAOx3, NAD
HEENT-NC, AT, anicteric, clear oral mm
Neck-supple
CV-reg, no M, +S1/S2
Lungs-clear B/L
Abd-soft, NT, ND
Ext-no edema
Musculoskeletal-no cyanosis, clubbing
Skin-warm and dry
Neuro-grossly non-focal
Psych-calm, cooperative
Unstable angina -hemodynamically stable. Symptoms resolved. Troponins negative. Underwent successful cardiac catheterization yesterday with stenting of 90% LAD lesion. Cardiology recommends dual antiplatelet therapy for at least 12 months with
aspirin and ticagrelor. Possible staged PCI for the RCA lesion in the future. He sees Dr. Phipps in the office.
CAD -with prior stenting to RCA in 2000.
[place] on CKD 3B -creatinine 1.9 on admission, improved to 1.3 today. [place] present on admission. Suspect he may have had volume depletion on arrival.
Essential hypertension -stable.
DM2 with hyperglycemia -hemoglobin A1c 7.9%. We discussed the importance of tighter glucose control in light of his CAD and presentation with angina. He uses glipizide, metformin, Sitagliptin at home. Hold oral agents, use sliding scale insulin
for now. Hold metformin for 48 hours post catheterization. Recommend going for daily walks. Discussed with patient.
Hyperlipidemia -continue rosuvastatin. LDL noted to be 58, goal is less than 55. Will add Zetia. Discussed with cardiology. Discussed with patient.
Hypothyroidism -continue levothyroxine.
Chronic normocytic anemia -will need outpatient follow-up.
GERD
Full code
Dispo - medically stable for discharge today. Outpatient follow-up. Updated at the bedside. Discussed with cardiology.
33 minutes spent in discharge process.
Anticipated Discharge: Today
Subjective/Interval History
-
Date of Service: July 05, 2024
Patient seen and examined. No complaints. Denies chest pain.
Objective Data
-
Labs:
Laboratory Results
07/05/24
02:33
WBC 5.0
Hgb 11.9 L
Hct 33.9 L
Plt Count 160
Sodium 139
Potassium 4.7
Chloride 106
Carbon Dioxide 24
BUN 25 H
Creatinine 1.3
Glucose 107 H
Calcium 9.7
Vital Signs:
Vital Signs
Temp Pulse Resp BP Pulse Ox
97.8 F 60 18 142/51 98
07/05/24 06:54 07/05/24 07:00 07/05/24 06:54 07/05/24 06:56 07/05/24 06:54
I&O
07/04/24 07/05/24 07/06/24
06:59 06:59 06:59
Intake Total 460 / 460 180 / 180
Output Total 850 / 850
Balance -390 / -390 180 / 180
Review of Systems
-
History Source: Patient
All other systems: Reviewed and negative
--- NOTE | 2024-07-05 10:01 | W.DS.TRANS ---
DC Summary - Weapons And Tactics Instructor
-
Discharge Instructions:
Discharge Diagnosis/Procedures Unstable angina, angioplasty and stent to Left
Anterior Descending artery
Diet Low Cholesterol,Low Fat,Diabetic, Carb
Controlled
Activity As tolerated
Additional Activity Limited weightbearing on right upper extremity
for 1 week
Driving Restrictions As prior to admission
Bathing Restrictions None
Other Services Cardiac Rehab
Instructions:
Stand-Alone Forms: DC Instructions- Cath/EP Lab
Changes to Home Medications: No
Discharge Medications:
DC Medications w/original date entered in [facility]
gemfibrozil 600 mg tablet 600 mg PO BID 10/15/12
glipizide 5 mg tablet 5 mg PO DAILY 10/15/12
metformin 1,000 mg tablet 1,000 mg PO DAILY 10/15/12
metoprolol succinate 50 mg tablet,extended release 24 hr 50 mg PO HS 10/15/12
pioglitazone 45 mg tablet 45 mg PO DAILY 10/15/12
sitagliptin phosphate 100 mg tablet (Januvia) 100 mg PO DAILY 10/15/12
cholecalciferol (vitamin D3) 50 mcg (2,000 unit) capsule (Vitamin D3) 2,000 unit PO DAILY 12/28/17
nitroglycerin 0.4 mg sublingual tablet 0.4 mg sublingual [id number] PRN cp 12/28/17
pyridoxine (vitamin B6) 100 mg tablet 100 mg PO DAILY 12/28/17
amlodipine 5 mg tablet 5 mg PO DAILY 07/04/24
ascorbic acid (vitamin C) 500 mg tablet (Vitamin C) 500 mg PO DAILY 07/04/24
aspirin 81 mg tablet 81 mg PO DAILY 07/04/24
cyanocobalamin (vitamin B-12) 100 mcg tablet 100 mcg PO DAILY 07/04/24
famotidine 40 mg tablet 40 mg PO DAILY 07/04/24
ferrous sulfate 325 mg (65 mg iron) tablet 325 mg PO DAILY 07/04/24
levothyroxine 50 mcg tablet 50 mcg PO DAILY 07/04/24
lisinopril 5 mg tablet 5 mg PO DAILY 07/04/24
pantoprazole 20 mg tablet,delayed release 20 mg PO DAILY 07/04/24
rosuvastatin 40 mg tablet 40 mg PO DAILY 07/04/24
vitamin A 3,000 mcg (10,000 unit) capsule 150 mcg PO DAILY 07/04/24
ezetimibe 10 mg tablet 10 mg PO DAILY #30 tabs 07/05/24
ticagrelor 90 mg tablet (Brilinta) 90 mg PO BID #60 tabs 07/05/24
Home Medication Changes
Pending Results: No
[2024-07-05] MEDS: ZETIA 10 MG PO (10:06)
[2024-07-05 10:11] VITALS: BP 141/71
--- NOTE | 2024-07-05 11:04 | PTCARENOTE ---
D/C instructions including all medications discussed w/pt and spouse. IV & senior sharepoint architect D/C'd & pt left hospital w/all personal belongings inc cell phone, injection operator, & clothing. Pt taken out via wheelchair by staff. Driven home by pt's spouse.
[2024-07-06 07:50] LABS: ACT-LR - POC > 397 Seconds (116-155)
[2024-07-06 07:50] LABS: ACT-LR - POC > 397 Seconds (116-155)
== END 2024-07-05 11:07 | disposition home or self-care (01) | DRG 322 ==
LOC: IVU 07:24
PROVIDERS: Emergency Medicine; Internal Medicine Cardiovascular Disease; Nurse Practitioner; ADMITTING PHYSICIAN Internal Medicine; ATTENDING PHYSICIAN Hospitalist; EMERGENCY PHYSICIAN Emergency Medicine; FAMILY PHYSICIAN Family Medicine; OTHER PHYSICIAN Internal Medicine Cardiovascular Disease
PROC: B240ZZ3 Ultrasonography of Single Coronary Artery, Intravascular (ICD-10-PCS; 2024-07-04)
PROC: B211YZZ Fluoroscopy of Multiple Coronary Arteries using Other Contrast (ICD-10-PCS; 2024-07-04)
PROC: 4A023N7 Measurement of Cardiac Sampling and Pressure, Left Heart, Percutaneous Approach (ICD-10-PCS; 2024-07-04)
PROC: 027034Z Dilation of Coronary Artery, One Artery with Drug-eluting Intraluminal Device, Percutaneous Approach (ICD-10-PCS; 2024-07-04)
DX: I25.110 Atherosclerotic heart disease of native coronary artery with unstable angina pectoris (principal); N17.9 Acute kidney failure, unspecified; E78.00 Pure hypercholesterolemia, unspecified; E03.9 Hypothyroidism, unspecified; E11.22 Type 2 diabetes mellitus with diabetic chronic kidney disease; E11.65 Type 2 diabetes mellitus with hyperglycemia; K21.9 Gastro-esophageal reflux disease without esophagitis; I12.9 Hypertensive chronic kidney disease with stage 1 through stage 4 chronic kidney disease, or unspecified chronic kidney disease; N18.32 Chronic kidney disease, stage 3b; I44.0 Atrioventricular block, first degree; D63.1 Anemia in chronic kidney disease; Z95.5 Presence of coronary angioplasty implant and graft; Z79.84 Long term (current) use of oral hypoglycemic drugs; Z87.891 Personal history of nicotine dependence; Z82.49 Family history of ischemic heart disease and other diseases of the circulatory system; Z79.899 Other long term (current) drug therapy; Z79.82 Long term (current) use of aspirin
CPT/HCPCS: 71046; 80048; 80053; 80061; 81003; 82962; 83036; 84484; 85025; 85027; 85347; 87070; 92978; 93005; 93306; 93458; 99285; C1725; C1753; C1769; C1874; C1894; C9600; Q9967

== ENCOUNTER 2024-07-27 16:28 | Outpatient (RCR) | payer MEDICARE, OTHER, SELFPAY ==
[2024-07-25 15:31] LABS: Glucose - Point of Care 283 mg/dl (70-99)
[2024-07-25 15:41] LABS: Glucose - Point of Care 233 mg/dl (70-99)
[2024-07-27 15:20] LABS: Glucose - Point of Care 232 mg/dl (70-99)
[2024-07-27 16:01] LABS: Glucose - Point of Care 217 mg/dl (70-99)
== END 2024-07-27 23:59 | disposition home or self-care (01) ==
LOC: CRHB 16:28
PROVIDERS: ATTENDING PHYSICIAN Internal Medicine
DX: I25.10 Atherosclerotic heart disease of native coronary artery without angina pectoris (principal); Z95.5 Presence of coronary angioplasty implant and graft
CPT/HCPCS: 82962; G0422; G0423

== ENCOUNTER 2024-08-29 15:02 | Outpatient (RCR) | payer MEDICARE, OTHER, SELFPAY ==
[2024-08-03 14:45] LABS: Glucose - Point of Care 210 mg/dl (70-99)
[2024-08-03 15:18] LABS: Glucose - Point of Care 161 mg/dl (70-99)
[2024-08-08 14:50] LABS: Glucose - Point of Care 120 mg/dl (70-99)
[2024-08-08 15:36] LABS: Glucose - Point of Care 92 mg/dl (70-99)
[2024-08-10 15:23] LABS: Glucose - Point of Care 132 mg/dl (70-99)
[2024-08-15 14:45] LABS: Glucose - Point of Care 344 mg/dl (70-99)
[2024-08-15 15:45] LABS: Glucose - Point of Care 226 mg/dl (70-99)
[2024-08-17 14:49] LABS: Glucose - Point of Care 140 mg/dl (70-99)
[2024-08-17 15:38] LABS: Glucose - Point of Care 84 mg/dl (70-99)
[2024-08-22 14:58] LABS: Glucose - Point of Care 194 mg/dl (70-99)
[2024-08-24 14:44] LABS: Glucose - Point of Care 155 mg/dl (70-99)
[2024-08-24 15:32] LABS: Glucose - Point of Care 155 mg/dl (70-99)
[2024-08-29 14:52] LABS: Glucose - Point of Care 181 mg/dl (70-99)
[2024-08-29 15:28] LABS: Glucose - Point of Care 149 mg/dl (70-99)
== END 2024-08-29 23:59 | disposition home or self-care (01) ==
LOC: CRHB 15:02
PROVIDERS: ATTENDING PHYSICIAN Internal Medicine
DX: I25.10 Atherosclerotic heart disease of native coronary artery without angina pectoris (principal); Z95.5 Presence of coronary angioplasty implant and graft
CPT/HCPCS: 82962; G0422; G0423

== ENCOUNTER 2024-09-28 15:27 | Outpatient (RCR) | payer MEDICARE, OTHER, SELFPAY ==
[2024-08-31 14:53] LABS: Glucose - Point of Care 185 mg/dl (70-99)
[2024-08-31 15:42] LABS: Glucose - Point of Care 152 mg/dl (70-99)
[2024-09-05 14:56] LABS: Glucose - Point of Care 137 mg/dl (70-99)
[2024-09-05 15:40] LABS: Glucose - Point of Care 138 mg/dl (70-99)
[2024-09-07 14:42] LABS: Glucose - Point of Care 232 mg/dl (70-99)
[2024-09-07 15:35] LABS: Glucose - Point of Care 140 mg/dl (70-99)
[2024-09-21 14:53] LABS: Glucose - Point of Care 183 mg/dl (70-99)
== END 2024-09-28 23:59 | disposition home or self-care (01) ==
LOC: CRHB 15:27
PROVIDERS: ATTENDING PHYSICIAN Internal Medicine
DX: I25.10 Atherosclerotic heart disease of native coronary artery without angina pectoris (principal); Z95.5 Presence of coronary angioplasty implant and graft
CPT/HCPCS: 82962; G0422; G0423

== ENCOUNTER 2024-10-12 13:00 | Outpatient (RCR) | payer MEDICARE, OTHER, SELFPAY | END 2024-10-12 23:59 | disposition home or self-care (01) | LOC: CRHB 13:00 | PROVIDERS: ATTENDING PHYSICIAN Internal Medicine; FAMILY PHYSICIAN Internal Medicine | DX: Z95.5 Presence of coronary angioplasty implant and graft (principal); I25.10 Atherosclerotic heart disease of native coronary artery without angina pectoris | CPT/HCPCS: G0422 ==

== ENCOUNTER → 2024-10-26 14:02 | Outpatient (REF) | payer MEDICARE, OTHER, SELFPAY | LOC: RAD 14:02 | PROVIDERS: ATTENDING PHYSICIAN Specialist; FAMILY PHYSICIAN Internal Medicine | DX: N18.31 Chronic kidney disease, stage 3a (principal) | CPT/HCPCS: 76770 ==

== ENCOUNTER 2025-01-15 18:20 | Emergency (ER) | payer MEDICARE, OTHER, SELFPAY ==
[2025-01-15 18:30] VITALS: BP 143/69
[2025-01-15 18:51] LABS: % Basophils 1.1 % (0-2); % Eosinophils 0.4 % (0-6); % Immature Granulocytes 0.4 % (0-0.5); % Lymphocytes 19.3 % (20.5-51.1); % Monocytes 8.7 % (1.7-9.3); % Neutrophils 70.1 % (42.2-75.2); Absolute Basophils 0.1 10^3/uL (0-0.2); Absolute Lymphocytes 0.9 10^3/uL (1.2-3.4); Absolute Monocytes 0.4 10^3/uL (0.1-0.6); Absolute Neutrophils 3.2 10^3/uL (1.4-6.5); Hematocrit 33.3 % (39.0-52.0); Hemoglobin 11.1 g/dL (13.0-18.0); Mean Corp Hgb Conc. 33.3 g/dL (33.0-37.0); Mean Corpuscular Hgb 32.1 pg (27.0-31.0); Mean Corpuscular Volume 96.2 fL (80.0-94.0); Mean Platelet Volume 9.7 fL (7.4-10.4); Nucleated Red Blood Cells % 0 % (-); Platelet Count 198 10^3/uL (130-400); Red Blood Cell Count 3.46 10^6/uL (4.70-6.10); Red Cell Dist. Width 13.9 % (11.5-14.5); White Blood Cell Count 4.5 10^3/uL (4.8-10.8)
[2025-01-15 19:05] LABS: PT 13.5 Sec (11.4-14.6)
[2025-01-15 19:06] LABS: ALT (SGPT) 13 U/L (0-50); AST (SGOT) 19 U/L (17-59); Albumin 4.6 g/dl (3.5-5.0); Alkaline Phosphatase 58 U/L (38-126); Blood Urea Nitrogen 19 mg/dl (9-20); Calcium 9.5 mg/dl (8.4-10.2); Carbon Dioxide 24 mmol/L (22-30); Chloride 101 mmol/L (98-107); Glucose 193 mg/dl (70-99); Potassium 4.9 mmol/L (3.5-5.1); Sodium 136 mmol/L (135-145); Total Bilirubin 0.6 mg/dl (0.2-1.3); Total Protein 7.1 g/dl (6.3-8.2); eGFR 49.56
[2025-01-15 19:17] LABS: Troponin I < 0.012 ng/ml
[2025-01-15 20:03] VITALS: BP 128/69
[2025-01-15 20:08] VITALS: BMI 22.8
--- NOTE | 2025-01-15 21:53 | ED.GENMED ---
History of Present Illness
General
Chief Complaint: Chest Pain
Time Seen by Provider: 01/15/25 21:02
History of Present Illness
History of Present Illness:
84-year-old male with history of CAD status post stenting in June, hyperlipidemia, diabetes presenting to the emergency department for chest pain. Patient reports around 1 PM this afternoon he bent forward and had onset of midsternal chest pain.
His gave him a nitroglycerin and notes that the pain improved. Upon arrival to the hospital, notes that his pain is absent. Denies any dyspnea. Denies fever or cough. Denies abdominal pain or GI symptoms. Denies additional acute medical
complaints
Past History
Past History
ED Past Medical History: CAD, HTN, Hypercholesterolemia, NIDDM, Hypothyroidism and Other (Cervical and lumbar DJD)
ED Past Surgical History: Cardiac (PTCA with stent to the RCA 2000)
Social History
Tobacco: Non-smoker
Alcohol: None
Drug: None
Personal:
Living: with family
Employment: Retired
Family History
Family History: Other (Noncontributory)
Phy Exam
Physical Exam
Physical Exam:
General: Well-appearing, no clinical signs of dehydration, nontoxic and in no acute distress
HEENT: protecting airway
Neck: appears supple
CV: Normal heart rate, regular rhythm
Resp: No accessory muscle use, no increased work of breathing, lungs clear to auscultation bilaterally
Abd: Soft and non-distended, no tenderness to palpation
Extremities: No deformities, no swelling, no erythema
Neuro: alert, no focal neurologic deficit
: deferred
Rectal: deferred
Psych: Normal affect
Skin: Intact
Scores
Heart Score for Chest Pain Patients
STEMI patient?: No
History: Slightly or Non-Suspicious
ECG: Normal
Age: >/= 65 years
Risk Factors: 1 or 2 Risk Factors
Troponin: </= Normal Limit
Heart Score for Chest Pain Patients: 3
Heart Score Risk: 2.5% MACE over next 6 weeks
Course
Orders/Labs/Results
Orders:
Orders
01/15/25 18:21
Electrocardiogram (*1) Urgent
Reason for Study: Chest Pain
EKG- Treatment ONCE
01/15/25 18:32
Cardiac Monitoring- Treatment ONCE
IV Insert/Care/Rem.- Treatment PRN
O2 Therapy [RESP] Urgent
Titrate/Wean O2 to maintain O2 sat greater than (%): 90
Special Instructions: Maintain sats >/=90%
Pulse Ox/spot Check [RESP] Urgent
Quantity: 1
Special Instructions: ON ROOM AIR
01/15/25 18:37
Complete Blood Count/With Diff Urgent
Comprehensive Metabolic Panel Urgent
Prothrombin Time Urgent
Troponin I Urgent
01/15/25 20:23
CR Chest - 2 Views Urgent
Comment:
Reason For Exam: chest pain
01/15/25 21:16
Electrocardiogram (*1) Urgent
Reason for Study: Chest Pain
EKG- Treatment ONCE
01/15/25 21:42
Troponin I Urgent
01/15/25 21:59
Ondansetron Orally Disint [Zofran Odt (Orally Disintegrating)] 4 mg PO NOW STA
Abnormal Lab Results
01/15/25
18:37
WBC 4.5 L 10^3/uL
(4.8-10.8)
RBC 3.46 L 10^6/uL
(4.70-6.10)
Hgb 11.1 L g/dL
(13.0-18.0)
Hct 33.3 L %
(39.0-52.0)
MCV 96.2 H fL
(80.0-94.0)
MCH 32.1 H pg
(27.0-31.0)
Absolute Lymphs (auto) 0.9 L 10^3/uL
(1.2-3.4)
Lymphocytes % 19.3 L %
(20.5-51.1)
Creatinine 1.4 H mg/dL
(0.7-1.3)
Glucose 193 H mg/dl
(70-99)
01/15/25 18:37
01/15/25 18:37
Vital Signs
Initial and Last Documented VS:
Initial Vital Signs
Temp Pulse Resp BP Pulse Ox
98.2 F 80 16 143/69 99
01/15/25 18:30 01/15/25 18:30 01/15/25 18:30 01/15/25 18:30 01/15/25 18:30
Last Documented Vital Signs
Temp Pulse Resp BP Pulse Ox
98.2 F 77 15 128/69 100
01/15/25 18:30 01/15/25 20:04 01/15/25 20:04 01/15/25 20:03 01/15/25 20:04
MDM/Problems Addressed
MDM/Problems Addressed:
84-year-old male with a history of CAD status post stenting presenting for episode of chest pain prior to arrival. Vital signs on arrival are normal.
On exam patient is well-appearing, no acute distress or discomfort. Benign cardiac and pulmonary exam. Patient reports he is currently pain-free. EKG obtained arrival, nonischemic criteria. No significant change from prior EKG. Lower suspicion
for ACS, however patient does have significant cardiac risk factors, including known coronary artery disease, so will obtain laboratory analysis including troponin. Will obtain chest x-ray imaging.
22:40 - Chest x-ray without acute cardiopulmonary disease. Troponin negative x 2. On reassessment remains stable pain-free. Feel stable for discharge, however given patient's cardiac history, advising close interval follow-up with shaft headman.
Return precautions discussed the patient verbalized understanding
*EKG
Interpreted by ED Provider?: Yes
EKG Intrepretation Date: 01/15/25
EKG Intrepretation Time: 21:55
Interpretation: normal
Comparison EKG: no changes (08/05/24)
Heart Rate: 77
Rate: normal
Rhythm: sinus
[place]ef[place]: normal axis
Interval: normal interval
QRS Pattern: normal QRS
Ischemia: no ischemia
*Critical Care Note
Total Time (30-74mins, 75-104mins- exclusive of procedures): Not Applicable
ED Attending Note
-
Portions of this chart may have been created with voice recognition software.� Occasional wrong word or��sound alike� substitutions may have occurred due to the inherent limitations of voice recognition software.
Discharge Plan
Departure
Patient Disposition: Home (Routine Discharge)
Date of Disposition: 01/15/25
Time of Disposition: 22:41
Patient with high blood pressure during this ER visit?: No
Condition: Good
Discharge Problem:
Chest pain
Instructions: Chest pain - Discharge instructions
Prescriptions:
No Action
metoprolol succinate 50 MG tablet extended release 24 hr
50 mg PO HS
pioglitazone 45 MG tablet
45 mg PO DAILY
gemfibrozil 600 MG tablet
600 mg PO BID
Patient Comments:
PT TAKES AT 1100 AND 2100
metformin 1,000 MG tablet
1,000 mg PO DAILY
glipizide 5 MG tablet
5 mg PO DAILY
Januvia 100 MG tablet
100 mg PO DAILY
nitroglycerin 0.4 MG tablet, sublingual
0.4 mg sublingual [id number] PRN (Reason: cp)
pyridoxine (vitamin B6) 100 MG tablet
100 mg PO DAILY
cholecalciferol (vitamin D3) [Vitamin D3] 2,000 UNIT capsule
2,000 unit PO DAILY
cyanocobalamin (vitamin B-12) 100 mcg Tablet
100 mcg PO DAILY
famotidine 40 mg Tablet
40 mg PO DAILY
amlodipine 5 mg Tablet
5 mg PO DAILY
pantoprazole 20 mg Tablet,Delayed Release (Dr/Ec)
20 mg PO DAILY
vitamin A 3,000 mcg (10,000 unit) Capsule
150 mcg PO DAILY
ascorbic acid (vitamin C) [Vitamin C] 500 mg Tablet
500 mg PO DAILY
levothyroxine 50 mcg Tablet
50 mcg PO DAILY
ferrous sulfate 325 mg (65 mg iron) Tablet
325 mg PO DAILY
aspirin 81 mg Tablet
81 mg PO DAILY
lisinopril 5 mg Tablet
5 mg PO DAILY
rosuvastatin 40 mg Tablet
40 mg PO DAILY
Brilinta 90 mg Tablet
90 mg PO BID Qty: 60 0RF
ezetimibe 10 mg Tablet
10 mg PO DAILY Qty: 30 0RF
Referrals:
Jimenez Phipps MD [Active] -
Slim Ferris MD [Family Provider] -
Activity Restrictions/Additional Instructions:
You were seen in the emergency department for chest pain
You were found to have normal EKG, heart enzymes, chest x-ray imaging. Please follow-up closely with your shaft headman
Please follow-up closely with your primary care physician.
Return to the emergency department for any worsening of your symptoms, or any development of chest pain, difficulty breathing, abdominal pain with persistent vomiting and inability to tolerate food or liquid by mouth (concern for dehydration),
weakness, headache or confusion, fever greater than 100.4, or any additional symptoms that are concerning to you.
Thank you for choosing [facility] [place].
Interventions
Interventions:
*Risk Screen - Suicide Last Done: 01/15/25 18:30
*General Assessment Last Done: 01/15/25 18:30
*Neglect/Abuse Screening Last Done: 01/15/25 18:30
*ED COVID-19 Vaccine History Last Done: 01/15/25 18:30
ED- Cardiac Assessment Last Done: 01/15/25 20:07
Discharge Date and Time
Print Language: GREEK
[2025-01-15 22:19] LABS: Troponin I 0.012 ng/ml
== END 2025-01-15 23:48 | disposition home or self-care (01) ==
LOC: EMR 18:20
PROVIDERS: EMERGENCY PHYSICIAN Student in an Organized Health Care Education/Training Program; FAMILY PHYSICIAN Internal Medicine
DX: R07.89 Other chest pain (principal); I25.10 Atherosclerotic heart disease of native coronary artery without angina pectoris; I10 Essential (primary) hypertension; E78.00 Pure hypercholesterolemia, unspecified; E11.9 Type 2 diabetes mellitus without complications; E03.9 Hypothyroidism, unspecified; Z95.5 Presence of coronary angioplasty implant and graft
CPT/HCPCS: 99284; 71046; 80053; 84484; 85025; 85610; 93005

== ENCOUNTER 2025-01-17 22:55 | Emergency (ER) | payer MEDICARE, OTHER, SELFPAY ==
[2025-01-17 23:06] VITALS: BP 132/67
[2025-01-17 23:21] LABS: % Basophils 1.1 % (0-2); % Eosinophils 0.8 % (0-6); % Immature Granulocytes 0.4 % (0-0.5); % Lymphocytes 22.9 % (20.5-51.1); % Neutrophils 65.8 % (42.2-75.2); Absolute Basophils 0.1 10^3/uL (0-0.2); Absolute Lymphocytes 1.1 10^3/uL (1.2-3.4); Absolute Monocytes 0.4 10^3/uL (0.1-0.6); Absolute Neutrophils 3.1 10^3/uL (1.4-6.5); Hematocrit 32.9 % (39.0-52.0); Hemoglobin 10.7 g/dL (13.0-18.0); Mean Corp Hgb Conc. 32.5 g/dL (33.0-37.0); Mean Corpuscular Hgb 31.3 pg (27.0-31.0); Mean Corpuscular Volume 96.2 fL (80.0-94.0); Mean Platelet Volume 9.9 fL (7.4-10.4); Nucleated Red Blood Cells % 0 % (-); Platelet Count 196 10^3/uL (130-400); Red Blood Cell Count 3.42 10^6/uL (4.70-6.10); Red Cell Dist. Width 14.2 % (11.5-14.5); White Blood Cell Count 4.8 10^3/uL (4.8-10.8)
[2025-01-17 23:41] LABS: ALT (SGPT) 12 U/L (0-50); AST (SGOT) 20 U/L (17-59); Albumin 4.9 g/dl (3.5-5.0); Alkaline Phosphatase 65 U/L (38-126); Blood Urea Nitrogen 22 mg/dl (9-20); Calcium 9.6 mg/dl (8.4-10.2); Carbon Dioxide 26 mmol/L (22-30); Chloride 102 mmol/L (98-107); Glucose 325 mg/dl (70-99); Potassium 5.2 mmol/L (3.5-5.1); Sodium 139 mmol/L (135-145); Total Bilirubin 0.6 mg/dl (0.2-1.3); Total Protein 7.3 g/dl (6.3-8.2); eGFR 49.56
[2025-01-17 23:44] LABS: Troponin I 0.013 ng/ml
[2025-01-18 00:32] VITALS: BMI 25.9
[2025-01-18 00:33] VITALS: BP 134/79
[2025-01-18 01:00] VITALS: BP 125/67
--- NOTE | 2025-01-18 02:43 | DOWNTIME ---
There was a [facility] [employer]ist Downtime on 01/18/2025 from 0100 to 01/18/2024 at 0235 . Downtime documentation of patient's care, including medication administrations, has been reconciled in the electronic record per guidelines. Refer to the
patient's paper chart under the miscellaneous tab to see printed paper medication records and downtime forms.
--- NOTE | 2025-01-18 02:48 | ED.GENMED ---
History of Present Illness
General
Chief Complaint: Chest Pain
Time Seen by Provider: 01/18/25 02:39
History of Present Illness
History of Present Illness:
Patient is a 84-year-old male with history of CAD status post stents presenting to the emergency department chest pain.� Patient states that 8:30 PM he was eating dinner when he developed left-sided chest pain.� It did not radiate.� No associated
nausea vomiting diaphoresis.� No shortness of breath.� States that he was eating pizza for dinner.� He did take Tums as well as nitroglycerin which did resolve the symptoms.� After that he was having significant amount of belching.� No fevers or
chills.� No numbness tingling.� No weakness.� No hemoptysis or leg swelling.� The pain was not exertional.� This does not feel similar to when he needed stents.
Past History
Past History
ED Past Medical History: CAD, HTN, Hypercholesterolemia, NIDDM, Hypothyroidism and Other (Cervical and lumbar DJD)
ED Past Surgical History: Cardiac (PTCA with stent to the RCA 2000)
Social History
Tobacco: Non-smoker
Alcohol: None
Drug: None
Personal:
Living: with family
Employment: Retired
Family History
Family History: Other (Noncontributory)
Phy Exam
Physical Exam
Physical Exam:
GENERAL: in no acute distress
HEENT: normocephalic, extraocular movements intact, moist oral mucosa
NECK: normal inspection
RESPIRATORY: no respiratory distress, clear to auscultation bilaterally
CARDIOVASCULAR: regular rate and rhythm, 2+ radial pulses bilaterally
ABDOMEN/: soft, non-distended, non-tender to palpation, no rebound or guarding
EXTREMITIES: non-tender, no edema/swelling
NEUROLOGIC: awake and alert, moves all extremities
SKIN: warm���������������
Scores
Heart Score for Chest Pain Patients
STEMI patient?: Not applicable
Course
Orders/Labs/Results
Orders:
Orders
01/17/25 22:57
Electrocardiogram (*1) Urgent
Reason for Study: Chest Pain
EKG- Treatment ONCE
01/17/25 23:13
Complete Blood Count/With Diff Urgent
Comprehensive Metabolic Panel Urgent
Troponin I Urgent
01/18/25 02:16
Troponin I Urgent
Abnormal Lab Results
01/17/25
23:13
RBC 3.42 L 10^6/uL
(4.70-6.10)
Hgb 10.7 L g/dL
(13.0-18.0)
Hct 32.9 L %
(39.0-52.0)
MCV 96.2 H fL
(80.0-94.0)
MCH 31.3 H pg
(27.0-31.0)
MCHC 32.5 L g/dL
(33.0-37.0)
Absolute Lymphs (auto) 1.1 L 10^3/uL
(1.2-3.4)
Potassium 5.2 H mmol/L
(3.5-5.1)
BUN 22 H mg/dl
(9-20)
Creatinine 1.4 H mg/dL
(0.7-1.3)
Glucose 325 H mg/dl
(70-99)
01/17/25 23:13
01/17/25 23:13
Vital Signs
Initial and Last Documented VS:
Initial Vital Signs
Temp Pulse Resp BP Pulse Ox
97.2 F 77 18 132/67 100
01/17/25 23:06 01/17/25 23:06 01/17/25 23:06 01/17/25 23:06 01/17/25 23:06
Last Documented Vital Signs
Temp Pulse Resp BP Pulse Ox
97.2 F 75 13 125/67 97
01/17/25 23:06 01/18/25 02:30 01/18/25 02:30 01/18/25 01:00 01/18/25 02:30
MDM/Problems Addressed
Differential Diagnosis Includes:
84-year-old male with history of CAD status post stent presenting to the emergency department chest pain has since resolved.� Vitals unremarkable and exam is reassuring.� Differential consist of atypical ACS versus reflux or esophagitis. �Likely
reflux/esophagitis given that occurred after his meal and it was not exertional.� However patient does have significant cardiac history so cannot rule out ACS.� History and exam not consistent with PE or dissection.� Blood work obtained prior to
evaluation is unremarkable.� Will obtain delta troponin.� EKG per my interpretation normal sinus rhythm.� If delta troponin remains negative will discharge with cardiology follow-up.
*Critical Care Note
Total Time (30-74mins, 75-104mins- exclusive of procedures): Not Applicable
ED Attending Note
-
Portions of this chart may have been created with voice recognition software.� Occasional wrong word or��sound alike� substitutions may have occurred due to the inherent limitations of voice recognition software.
Discharge Plan
Departure
Patient with high blood pressure during this ER visit?: No
Discharge Problem:
Chest pain
Instructions: Chest Pain PCP Follow Up
Prescriptions:
No Action
metoprolol succinate 50 MG tablet extended release 24 hr
50 mg PO HS
pioglitazone 45 MG tablet
45 mg PO DAILY
gemfibrozil 600 MG tablet
600 mg PO BID
Patient Comments:
PT TAKES AT 1100 AND 2100
metformin 1,000 MG tablet
1,000 mg PO DAILY
glipizide 5 MG tablet
5 mg PO DAILY
Januvia 100 MG tablet
100 mg PO DAILY
nitroglycerin 0.4 MG tablet, sublingual
0.4 mg sublingual [id number] PRN (Reason: cp)
pyridoxine (vitamin B6) 100 MG tablet
100 mg PO DAILY
cholecalciferol (vitamin D3) [Vitamin D3] 2,000 UNIT capsule
2,000 unit PO DAILY
cyanocobalamin (vitamin B-12) 100 mcg Tablet
100 mcg PO DAILY
famotidine 40 mg Tablet
40 mg PO DAILY
amlodipine 5 mg Tablet
5 mg PO DAILY
pantoprazole 20 mg Tablet,Delayed Release (Dr/Ec)
20 mg PO DAILY
vitamin A 3,000 mcg (10,000 unit) Capsule
150 mcg PO DAILY
ascorbic acid (vitamin C) [Vitamin C] 500 mg Tablet
500 mg PO DAILY
levothyroxine 50 mcg Tablet
50 mcg PO DAILY
ferrous sulfate 325 mg (65 mg iron) Tablet
325 mg PO DAILY
aspirin 81 mg Tablet
81 mg PO DAILY
lisinopril 5 mg Tablet
5 mg PO DAILY
rosuvastatin 40 mg Tablet
40 mg PO DAILY
Brilinta 90 mg Tablet
90 mg PO BID Qty: 60 0RF
ezetimibe 10 mg Tablet
10 mg PO DAILY Qty: 30 0RF
Referrals:
Slim Ferris MD [Family Provider] -
Activity Restrictions/Additional Instructions:
You were evaluated in the Emergency Department today for chest pain. Your evaluation has shown no signs of medical conditions requiring emergent intervention at this time, however we recommend that you follow up with your primary care physician or
your calender feeder as soon as possible for further testing as an outpatient.
Please schedule an appointment for follow up with your primary care physician as soon as possible.
Return to the Emergency Department if you experience worsening or uncontrolled chest pain, shortness of breath, light headedness, feeling faint, nausea, vomiting, or any other concerning symptoms.
Thank you for choosing us for your care.
Interventions
Interventions:
*Risk Screen - Suicide Last Done: 01/17/25 23:03
*General Assessment Last Done: 01/18/25 00:33
*Neglect/Abuse Screening Last Done: 01/18/25 00:39
ED- Fall Risk Assessment Last Done: 01/18/25 00:33
*ED COVID-19 Vaccine History Last Done: 01/18/25 00:33
ED- Cardiac Assessment Last Done: 01/18/25 00:33
Discharge Date and Time
Print Language: MALIAN
[2025-01-18 03:23] VITALS: BP 118/60
[2025-01-18 03:39] LABS: Troponin I < 0.012 ng/ml
[2025-01-18 04:00] VITALS: BP 123/59
== END 2025-01-18 04:30 | disposition home or self-care (01) ==
LOC: EMR 22:55
PROVIDERS: Student in an Organized Health Care Education/Training Program; EMERGENCY PHYSICIAN Student in an Organized Health Care Education/Training Program; FAMILY PHYSICIAN Internal Medicine
DX: R07.89 Other chest pain (principal); R14.2 Eructation; I25.10 Atherosclerotic heart disease of native coronary artery without angina pectoris; E78.00 Pure hypercholesterolemia, unspecified; E11.9 Type 2 diabetes mellitus without complications; E03.9 Hypothyroidism, unspecified; I10 Essential (primary) hypertension; M47.816 Spondylosis without myelopathy or radiculopathy, lumbar region; Z95.5 Presence of coronary angioplasty implant and graft; Z79.82 Long term (current) use of aspirin; Z79.84 Long term (current) use of oral hypoglycemic drugs; Z88.7 Allergy status to serum and vaccine; Z91.010 Allergy to peanuts
CPT/HCPCS: 99283; 80053; 84484; 85025; 93005

== ENCOUNTER 2025-01-20 23:29 | Inpatient (IN) | payer MEDICARE, OTHER, SELFPAY ==
[2025-01-20 20:41] VITALS: BMI 22.1
[2025-01-20 20:47] VITALS: BP 125/70
[2025-01-20 21:11] VITALS: BP 130/66
[2025-01-20 21:44] LABS: Hematocrit 30.7 % (39.0-52.0); Hemoglobin 10.2 g/dL (13.0-18.0); Mean Corp Hgb Conc. 33.2 g/dL (33.0-37.0); Mean Corpuscular Hgb 31.8 pg (27.0-31.0); Mean Corpuscular Volume 95.6 fL (80.0-94.0); Mean Platelet Volume 9.9 fL (7.4-10.4); Platelet Count 179 10^3/uL (130-400); Red Blood Cell Count 3.21 10^6/uL (4.70-6.10); Red Cell Dist. Width 14.2 % (11.5-14.5); White Blood Cell Count 3.7 10^3/uL (4.8-10.8)
[2025-01-20 21:59] LABS: ALT (SGPT) 11 U/L (0-50); AST (SGOT) 18 U/L (17-59); Albumin 4.1 g/dl (3.5-5.0); Alkaline Phosphatase 57 U/L (38-126); Blood Urea Nitrogen 21 mg/dl (9-20); Calcium 9.1 mg/dl (8.4-10.2); Carbon Dioxide 27 mmol/L (22-30); Chloride 101 mmol/L (98-107); Estimated Creatinine Clearance 43 ml/min; Glucose 211 mg/dl (70-99); Potassium 4.7 mmol/L (3.5-5.1); Sodium 135 mmol/L (135-145); Total Bilirubin 0.5 mg/dl (0.2-1.3); Total Protein 6.7 g/dl (6.3-8.2); eGFR 54.17
[2025-01-20 22:00] VITALS: BP 125/68
[2025-01-20 22:14] LABS: Troponin I 0.084 ng/ml
[2025-01-20] MEDS: LOW STRENGTH ASPIRIN 324 MG PO (22:38)
[2025-01-20 22:40] VITALS: BP 131/77
[2025-01-20] MEDS: NITROSTAT (SUBLINGUAL) 0.4 MG SL (22:40)
[2025-01-20 22:44] LABS: APTT 35.4 Sec (23.4-35.0)
[2025-01-20 22:53] VITALS: BP 114/69
--- NOTE | 2025-01-20 22:56 | ED.GENMED ---
History of Present Illness
General
Chief Complaint: Chest Pain
Time Seen by Provider: 01/20/25 21:02
History of Present Illness
History of Present Illness:
84-year-old male presents the emergency department for evaluation of chest pain that began at approximately 5 PM tonight. He was walking downstairs when it began. This is his third visit this week for chest pain, each resolved after a single dose
of nitroglycerin. He was seen in the ER on both occasions with normal EKG and normal troponin. On arrival today he complains of 3 out of 10 chest pain, did take 2 doses of nitro before coming in. He is not certain if this is at all similar to his
prior angina. Has been compliant with his Brilinta since having PCI to his LAD in June 2024
Past History
Past History
ED Past Medical History: CAD, HTN, Hypercholesterolemia, NIDDM, Hypothyroidism and Other (Cervical and lumbar DJD)
ED Past Surgical History: Cardiac (PTCA with stent to the RCA 2000)
Social History
Tobacco: Non-smoker
Alcohol: None
Drug: None
Personal:
Living: with family
Employment: Retired
Family History
Family History: Other (Noncontributory)
Review of Systems
Review of Systems
Allergies reviewed?: Yes
All Other Systems: ROS reviewed and negative except as documented in HPI and ROS
Phy Exam
Physical Exam
Physical Exam:
GEN: Well appearing, NAD, WDWN
HEENT: Oral mucosa moist, no scleral icterus
Cardiac: Regular rate and rhythm, no murmurs
Lung: No respiratory distress, no tachypnea
MSK: No gross deformity or injuries
Skin: Good color, no pallor or jaundice, no rashes
Neuro: AO x3, moves all extremities freely
Psych: Calm, cooperative
Scores
Heart Score for Chest Pain Patients
STEMI patient?: No
History: Moderately Suspicious
ECG: Normal
Age: >/= 65 years
Risk Factors: >/= 3 Risk Factors or History of CAD
Troponin: >/= 3 x Normal Limit
Heart Score for Chest Pain Patients: 7
Heart Score Risk: 72.7 % MACE over next 6 weeks
Course
Orders/Labs/Results
Orders:
Orders
01/20/25 20:41
Electrocardiogram (*1) Urgent
Reason for Study: Chest Pain
EKG- Treatment ONCE
01/20/25 21:37
Complete Blood Count/No Diff Urgent
Comprehensive Metabolic Panel Urgent
TSH Reflex To Free T4 Urgent
Comment: ADD ON
Troponin I Urgent
01/20/25 22:22
Aspirin Chewable [Low Strength Aspirin] 324 mg PO NOW STA
Heparin 4,000 units IV NOW STA
Nitroglycerin Sublingual [Nitrostat (Sublingual)] 0.4 mg SL NOW STA
Nursing to Place Non Medication Order As Directed
Physician Order: PTT 6 hours after initial start of Heparin infusion
Above order entered?: Yes
01/20/25 22:27
PTT Urgent
Comment: Obtain baseline before beginning heparin infusion if not already collected
01/20/25 22:30
Heparin 28760 Units/250 ml 25,000 units in 250 ml IV PER PROTOCOL
Weight to be used for heparin protocol in kilograms (kg):: 71.668
Protocol:: Cardiac Tx/Acute Coronary
PTT Goal Range to be used:: PTT 73 to 111 seconds
Order type:: Initial
INITIAL Infusion Dose (UNITS/KG/hr) & then follow protocol:: 12 units/kg/hr
Infusion Dose in UNITS/hr & then follow protocol (UNITS/hr):: 850
INFUSION RATE in mL/hr & then follow protocol (mL/hr):: 8.5
PTT less than or equal to 64 seconds:: Increase rate by 200 units/hr (+ 2 mL/hr)
PTT 64.1 to 72.9 seconds:: Increase rate by 100 units/hr (+ 1 mL/hr)
PTT 73 to 111 seconds:: Target Range. No change in rate.
PTT 111.1 to 130.9 seconds:: Decrease rate by 100 units/hr (- 1 mL/hr)
PTT 131 to 199.9 seconds:: HOLD for 1 hr. Then decrease rate by 200 units/hr (- 2 mL/hr)
PTT greater than or equal to 200 seconds:: HOLD for 2 hrs & Notify Provider. Then decrease by 200 units/hr (-
2 mL/hr)
Lab follow-up:: Each change, PTT q6h until 2 consecutive are therapeutic. Then PTT
daily.
01/21/25 00:30
Troponin I Urgent
01/21/25 06:00
Troponin I Urgent
Abnormal Lab Results
01/20/25 01/20/25
21:37 22:27
WBC 3.7 L 10^3/uL
(4.8-10.8)
RBC 3.21 L 10^6/uL
(4.70-6.10)
Hgb 10.2 L g/dL
(13.0-18.0)
Hct 30.7 L %
(39.0-52.0)
MCV 95.6 H fL
(80.0-94.0)
MCH 31.8 H pg
(27.0-31.0)
APTT 35.4 H Sec
(23.4-35.0)
BUN 21 H mg/dl
(9-20)
Glucose 211 H mg/dl
(70-99)
Troponin I 0.084 H* ng/ml
01/20/25 21:37
01/20/25 21:37
Vital Signs
Initial and Last Documented VS:
Initial Vital Signs
Temp Pulse Resp BP Pulse Ox
97.7 F 80 18 125/70 99
01/20/25 20:47 01/20/25 20:47 01/20/25 20:47 01/20/25 20:47 01/20/25 20:47
Last Documented Vital Signs
Temp Pulse Resp BP Pulse Ox
97.7 F 74 16 114/90 99
01/20/25 20:47 01/21/25 01:00 01/21/25 01:02 01/21/25 01:00 01/21/25 01:02
MDM/Problems Addressed
MDM/Problems Addressed:
84-year-old male presents with acute chest pain, third such visit this week however previous workups were unrevealing, today he has a mildly elevated troponin. Will admit to the hospitalist service for NSTEMI, aspirin and heparin initiated.
*Critical Care Note
Total Time (30-74mins, 75-104mins- exclusive of procedures): Not Applicable
Update Note
Update Note:
2249: Patient reports complete resolution of chest pain after dose of nitroglycerin
ED Attending Note
-
Portions of this chart may have been created with voice recognition software.� Occasional wrong word or��sound alike� substitutions may have occurred due to the inherent limitations of voice recognition software.
Discharge Plan
Departure
Patient Disposition: Admit
Date of Disposition: 01/20/25
Time of Disposition: 23:00
Admit to: IVU
Presentation/result/management discussed w/ accepting MD/DO: Hospitalist
Discharge Problem:
Non-ST elevation UT (NSTEMI)
Interventions
Interventions:
*General Assessment Last Done: 01/20/25 20:47
*Neglect/Abuse Screening Last Done: 01/20/25 20:47
*ED COVID-19 Vaccine History Last Done: 01/20/25 21:42
ED- Cardiac Assessment Last Done: 01/20/25 21:42
[2025-01-20 23:00] VITALS: BP 112/67
--- NOTE | 2025-01-20 23:01 | HPS.HSE ---
Family Physician
-
Family Physician: Slim Ferris
Chief Complaint
-
Left-sided chest pain nonradiating
History of Present Illness
84-year-old male complaining of chest pain that began approximate 5 PM tonight while walking downstairs he states he took nitroglycerin for 5 out of 10 pain which then went away. While sitting that the pain returned again at 10 PM on the left side
of his chest again 5 out of 10 pain nonradiating no diaphoresis no shortness of breath. His states she gave him an additional nitroglycerin and came to the hospital. Upon arrival he still had chest pain 3 out of 10 he was given additional
nitroglycerin here and is currently chest pain free. This is his third visit this week for chest pain which resolved after a single dose of nitroglycerin each time. He was seen in the ER on both occasions with normal EKG and normal troponin
however today's troponin was elevated. He follows with Dr. Phipps for cardiology. He denies fever, chills, headache, cough, shortness of breath, abdominal pain, nausea, vomiting, diarrhea, urinary symptoms he is compliant with his Brilinta since
having his PCI to LAD in June 2024
Other past medical history includes CAD PTCA with stent to RCA 2000, LAD stent June 2024, HTN, HLD, DM2, hypothyroidism, cervical and lumbar DJD
Medical History
Past Medical History
Past Medical History: Reports Other
Additional Past Medical History:
CAD s/p STEVEN to RCA (2000), LAD stent June 2024
HTN
HLD
DM2
Hypothyroidism
GERD
Cervical and lumbar DJD
Past Surgical History: Reports Other
Additional Past Surgical History:
RCA stent (2000)
LAD stent June 2024
Social History
Tobacco: Former Smoker (Quit smoking 40 yrs ago)
Alcohol: None
Drug: None
Personal:
Living: With Family
Employment: Retired
Family History
Family History: Other (Mother with CAD s/p NH. Father with CAD , CVA)
Allergies / Home Medications
Allergies reflects when Allergies were last updated in [facility].
Home Medications with original date entered in [facility]
Allergy/Medication List:
Allergies
Allergy/AdvReac Type Severity Reaction Status Date / Time
peanut Allergy back Verified 01/17/25 22:59
abscess
pneumococcal vaccine Allergy SEE BELOW Verified 01/20/25 23:18
Home Medications
gemfibrozil 600 mg tablet 600 mg PO BID 10/15/12
glipizide 5 mg tablet 5 mg PO DAILY 10/15/12
metformin 1,000 mg tablet 1,000 mg PO BID 10/15/12
metoprolol succinate 50 mg tablet,extended release 24 hr 50 mg PO HS 10/15/12
pioglitazone 45 mg tablet 45 mg PO DAILY 10/15/12
sitagliptin phosphate 100 mg tablet (Januvia) 100 mg PO DAILY 10/15/12
nitroglycerin 0.4 mg sublingual tablet 0.4 mg sublingual [id number] PRN cp 12/28/17
pyridoxine (vitamin B6) 100 mg tablet 100 mg PO DAILY 12/28/17
amlodipine 5 mg tablet 5 mg PO DAILY 07/04/24
aspirin 81 mg tablet 81 mg PO DAILY 07/04/24
cyanocobalamin (vitamin B-12) 100 mcg tablet 100 mcg PO DAILY 07/04/24
famotidine 40 mg tablet 40 mg PO DAILY 07/04/24
ferrous sulfate 325 mg (65 mg iron) tablet 325 mg PO DAILY 07/04/24
levothyroxine 50 mcg tablet 50 mcg PO DAILY 07/04/24
lisinopril 5 mg tablet 5 mg PO DAILY 07/04/24
pantoprazole 20 mg tablet,delayed release 20 mg PO DAILY 07/04/24
rosuvastatin 40 mg tablet 40 mg PO DAILY 07/04/24
ezetimibe 10 mg tablet 10 mg PO DAILY #30 tabs 07/05/24
ticagrelor 90 mg tablet (Brilinta) 90 mg PO BID #60 tabs 07/05/24
Review of Systems
-
History Source: Patient and Family ( at bedside )
A 12 point ROS was completed and negative except as noted: Yes
Constitutional: Denies Fever, Fatigue or Chills
EENT: Denies Sore Throat or Runny Nose
Respiratory: Denies Cough, Hemoptysis or Trouble Breathing
Cardiac: Reports Chest Pain (left breast ); Denies Diaphoresis or Palpitations
Abdomen/GI: Denies Abdominal Pain, Nausea, Vomiting, Diarrhea, Constipated, Bloody Stools or Black Stools
: Denies Dysuria, Frequency, Flank Pain, Incontinence, Difficulty Voiding, Urgency, Bleeding or Dark Urine
Musculoskeletal: Denies Joint Pain or Edema
Skin: Denies Itching or Rash
Neurological: Denies Dizzy, Headache or Weakness
Endocrine: Reports No Symptoms
Hematologic/Lymphatic: Reports No Symptoms
Psych: Reports Calm
Physical Exam
Vital Signs
Vital Signs
Temp Pulse Resp BP Pulse Ox
97.7 F 74 10 114/69 97
01/20/25 20:47 01/20/25 22:15 01/20/25 22:15 01/20/25 22:45 01/20/25 22:15
Physical Exam
General: Comfortable and Conversant; No Pain, Fever or Chills
HEENT: NormoCephalic, Anicteric, Moist mucous membranes, PERRLA, [place] Conjunctivae and No Ptosis
Respiratory: Clear; No Wheezes, Rales or Rhonchi
Cardiac: S1/S2 and Regular Rhythm; No Murmur, Rub, Gallop or Peripheral Edema
Breast: Deferred by me
GI: Soft, Non Tender, Non Distended, Normal Bowel Sounds and No Hepatosplenomegaly
Rectal: Deferred by Provider
Genito-urinary: Deferred by me
Musculoskeletal: No Clubbing, No Cyanosis and No Edema
Skin: Warm and Dry; No Rash
Neuro: AO x 3, No Motor Deficits, Nonfocal/grossly intact, Cranial Nerves Intact and No Sensory Deficits; No Slurred Speech, Facial Droop or Tremors
Psych: Calm
Laboratory Results
-
01/20/25 21:37
01/20/25 21:37
Laboratory Results
APTT 35.4 Sec (23.4-35.0) H 01/20/25 22:27
Total Bilirubin 0.5 mg/dl (0.2-1.3) 01/20/25 21:37
AST 18 U/L (17-59) 01/20/25 21:37
ALT 11 U/L (0-50) 01/20/25 21:37
Alkaline Phosphatase 57 U/L (38-126) 01/20/25 21:37
Troponin I 0.084 ng/ml H* 01/20/25 21:37
Data Reviewed
-
Lab Data: Labs Reviewed by me
Impression/Plan
-
Impression/plan:
Admit to IVU
#NSTEMI
#CAD s/p STEVEN to RCA (2000), LAD stent June 2024
-Aspirin 81 mg given in ER, continue aspirin 81 mg daily
Troponin 0.084, will trend yeah I ordered
-IV heparin drip
-Continue metoprolol 50 mg at bedtime with hold parameters
-Continue Brilinta 90 mg p.o. twice daily, Zetia 10 mg daily, Crestor 40 mg daily
-Check lipid profile, HgbA1c
-Consult [facility] cardiology aware
-Check CXR
EKG: Sinus rhythm 76 bpm with first-degree AV block nonspecific ST abnormality lead I with flattening QTc 434 MS
#Chronic macrocytic anemia/B12 deficiency
-Hgb 10.2, MCV 95.6
-Continue vitamin B6, vitamin B12 100 mcg p.o. daily
-Follow CBC
#HTN-Benign
Continue lisinopril 5 mg daily amlodipine 5 mg daily
#HLD
-Check lipid profile
-Continue gemfibrozil 600 mg p.o. twice daily, Zetia 10 mg daily, Crestor 40 mg daily
#DM2
-Accu-Cheks with SSI, check HgbA1c
-Hold glipizide 5 mg daily, Januvia 100 mg daily, pioglitazone 45 mg p.o. daily
-note states metformin 1000 mg twice daily is on hold
#Hypothyroidism
-Check TSH with free T4 reflex
-Continue levothyroxine 50 mcg p.o. daily
#GERD
-Continue Pepcid 40 mg daily
#Cervical and lumbar DJD
DVT prophylaxis
Current IV heparin drip
Full code
--- NOTE | 2025-01-20 23:26 | W.PN.UPDATE ---
Update Note
Progress Note Update
This is an addendum to the H&P written by Aundrea Carpenter on 01/20/2025.� Patient seen and examined independently with ICE HOUSE SUPERVISOR.
84-year-old male past medical history of CAD status post RCA stent in 2000 on Brilinta and LAD stent in June 2024, hypertension, hypercholesteremia, diabetes, hypothyroidism, cervical/lumbar degenerative disease, CKD 3B presenting for chest pain
today described as pressure radiating to the left arm which resolved with nitroglycerin.� This is third visit for chest pain this week which previously also resolved after single dose of nitroglycerin.� He previously had normal EKG and troponins on
prior ER visits.
EKG shows sinus rhythm with first-degree AV block.� There are T wave inversions in leads V1.
Troponin of 0.084.
Presentation concerning for NSTEMI versus unstable angina.� Aspirin given.� Heparin drip started.� Continue Brilinta.� Trend troponins.� Cardiology consulted.
Hold oral diabetic medications.� Insulin sliding scale.
[2025-01-20] MEDS: HEPARIN 4000 UNITS IV (23:29)
[2025-01-20] MEDS: HEPARIN 25000 UNITS/250 ML IV (23:30)
[2025-01-21] VITALS (9 sets, daily range): BP systolic 104–128; BP diastolic 54–90; BMI 24.1
[2025-01-21 01:05] LABS: TSH Reflex To Free T4 0.76 uIU/ml (0.47-4.68)
[2025-01-21 02:16] LABS: Troponin I 0.085 ng/ml
--- NOTE | 2025-01-21 02:34 | PTCARENOTE ---
Pt received as admit from ED. Pt placed on tele reading NSR/SB with occasional Bigeminy, HR 50s-70s. Pt ambulated to bed with standby assist without difficulty. Heparin currently infusing at 850units/hr, pt with no complaints of CP at this time.
Admission assessment completed and pt oriented to room. at bedside. Plan of care discussed and pt and verbalize understanding. Call nguyen within reach.
[2025-01-21] MEDS: SYNTHROID 50 MCG PO (06:08)
[2025-01-21 06:09] LABS: Glucose - Point of Care 70 mg/dl (70-99)
[2025-01-21 06:29] LABS: % Basophils 0.9 % (0-2); % Eosinophils 0.9 % (0-6); % Immature Granulocytes 0.3 % (0-0.5); % Monocytes 10.8 % (1.7-9.3); % Neutrophils 61.1 % (42.2-75.2); Absolute Lymphocytes 0.9 10^3/uL (1.2-3.4); Absolute Monocytes 0.4 10^3/uL (0.1-0.6); Absolute Neutrophils 2.1 10^3/uL (1.4-6.5); Hematocrit 29.3 % (39.0-52.0); Hemoglobin 9.9 g/dL (13.0-18.0); Mean Corp Hgb Conc. 33.8 g/dL (33.0-37.0); Mean Corpuscular Hgb 32.1 pg (27.0-31.0); Mean Corpuscular Volume 95.1 fL (80.0-94.0); Nucleated Red Blood Cells % 0 % (-); Platelet Count 163 10^3/uL (130-400); Red Blood Cell Count 3.08 10^6/uL (4.70-6.10); White Blood Cell Count 3.4 10^3/uL (4.8-10.8)
[2025-01-21 06:54] LABS: APTT > 200 Sec (23.4-35.0)
[2025-01-21 07:05] LABS: Troponin I 0.155 ng/ml
[2025-01-21 07:25] LABS: Glucose - Point of Care 94 mg/dl (70-99)
--- NOTE | 2025-01-21 07:44 | W.PN.HOSP.TC ---
Today's Communication/Plan
-
see plan
Assessment / Plan
Assessment / Plan
Gen: NAD, AAOx3.
Eyes: EOMI, PERRLA, no scleral icterus.
Neck: supple.
CV: RRR, +S1/S2, no m/r/g.
Resp: CTAB, no rales, wheezes, or rhonchi.
Abd: +BS, soft, NT, ND
Skin: No rashes.
Neuro: CN 2-12 intact, non-focal.
Psych: Normal mood and affect.
Acute NSTEMI:
-h/o CAD s/p STEVEN to RCA (2000), LAD stent June 2024
-EKG: Sinus rhythm 76 bpm with first-degree AV block nonspecific ST abnormality lead I with flattening QTc 434 MS
-cont heparin gtt
-trend trop (increasing to 0.155)
-cont ASA/BB/Brilinta/statin
-consult cardiology. Note, cardiology c/s was not placed on admission, just placed now, discussed with cardiology.
Other problems:
Chronic anemia/B12 deficiency: cont B12
Essential HTN: cont ACEi/BB/Norvasc
HLD: Cont gemfibrozil/Zetia/Crestor
DM2: holding home meds, SSI/accuchecks, check a1c
Hypothyroidism: cont Levoxyl
GERD: cont PPI
Cervical and lumbar DJD
FULL/heparin
Anticipated Discharge: 24 - 48 hours
Subjective/Interval History
-
Date of Service: January 21, 2025
Denies CP/SOB.
Objective Data
-
Labs:
Laboratory Results
01/20/25 01/20/25 01/21/25
21:37 22:27 06:00
WBC 3.7 L 3.4 L
Hgb 10.2 L 9.9 L
Hct 30.7 L 29.3 L
Plt Count 179 163
APTT 35.4 H > 200 H*
Sodium 135 Pending
Potassium 4.7 Pending
Chloride 101 Pending
Carbon Dioxide 27 Pending
BUN 21 H Pending
Creatinine 1.3 Pending
Glucose 211 H Pending
Calcium 9.1 Pending
Total Bilirubin 0.5 Pending
AST 18 Pending
ALT 11 Pending
Alkaline Phosphatase 57 Pending
Vital Signs:
Vital Signs
Temp Pulse Resp BP Pulse Ox
97.4 F 74 16 114/90 97
01/21/25 05:52 01/21/25 01:00 01/21/25 05:52 01/21/25 01:00 01/21/25 05:52
I&O
01/20/25 01/21/25 01/22/25
06:59 06:59 06:59
Output Total 300 / 300
Balance -300 / -300
--- NOTE | 2025-01-21 08:00 | CON.CAR ---
Addendum entered and electronically signed by Sean Rangel MD 01/21/25 14:44:
I saw and examined the patient.
The TIE HACKER's note was reviewed and I agree with the note.
Comment: 84-year-old male (known to Dr. Phipps, his primary center line cutter operator), with coronary artery disease (most recent PCI 06/2024), hypertension, dyslipidemia, CKD3a, type 2 diabetes mellitus, first-degree atrioventricular block, and PVCs who presented
to the emergency department with a chief complaint of chest pain.
Treatment of NSTEMI
Original Note:
Consultation
Consultation Request
Date/Time Consultation Requested: 01/21/2025 07:30
Date/Time Consultation Performed: 01/21/2025 09:00
Requesting Provider: Dr. Antoine
Performing Provider: BETHANIE Calhoun for Dr. Rangel
Reason for Consultation: NSTEMI
Medical History
-
Chief Complaint: Chest pain
History of Present Illness:
Jhon Funk is an 84-year-old male (known to Dr. Phipps, his primary center line cutter operator), with coronary artery disease (most recent PCI 06/2024), hypertension, dyslipidemia, CKD3a, type 2 diabetes mellitus, first-degree atrioventricular block, and PVCs
who presented to the emergency department with a chief complaint of chest pain. He has been having chest pain off and on for the past week. Left sided anterior chest pain. At its worst 7/10 in severity. He did not endorse associated diaphoresis,
shortness of breath, nor dizziness. His gave him a sublingual nitroglycerin tablet and he achieved near full relief. Prior ER visits showed relief with nitroglycerin. Prior ER visits had a stable EKG and troponin less than 0.012. At the
time this consultation, he is chest pain-free.
His was present and provided collateral information.
Past Medical History
Past Medical History: CAD, HTN, Hypercholesterolemia, NIDDM and Renal Failure (CKD3a)
Past Surgical History: Orthopedic
Social History
Tobacco: Former Smoker
Alcohol: None
Drug: None
Personal:
Living: With Family
Employment: Retired
Family History
Family History: Reviewed & Not Pertinent
Allergies / Home Medications
Allergy/AdvReac Type Severity Reaction Status Date / Time
peanut Allergy back Verified 01/17/25 22:59
abscess
pneumococcal vaccine Allergy SEE BELOW Verified 01/20/25 23:18
�Medication �Instructions �Recorded �Confirmed �Type
gemfibrozil 600 mg tablet 600 mg PO BID 10/15/12 01/20/25 History
glipizide 5 mg tablet 5 mg PO DAILY 10/15/12 01/20/25 History
metformin 1,000 mg tablet 1,000 mg PO BID 10/15/12 01/20/25 History
metoprolol succinate 50 mg 50 mg PO HS 10/15/12 01/20/25 History
tablet,extended release 24 hr
pioglitazone 45 mg tablet 45 mg PO DAILY 10/15/12 01/20/25 History
sitagliptin phosphate 100 mg 100 mg PO DAILY 10/15/12 01/20/25 History
tablet (Januvia)
nitroglycerin 0.4 mg sublingual 0.4 mg sublingual [id number] PRN cp 12/28/17 01/20/25 History
tablet
pyridoxine (vitamin B6) 100 mg 100 mg PO DAILY 12/28/17 01/20/25 History
tablet
amlodipine 5 mg tablet 5 mg PO DAILY 07/04/24 01/20/25 History
aspirin 81 mg tablet 81 mg PO DAILY 07/04/24 01/20/25 History
cyanocobalamin (vitamin B-12) 100 100 mcg PO DAILY 07/04/24 01/20/25 History
mcg tablet
famotidine 40 mg tablet 40 mg PO DAILY 07/04/24 01/20/25 History
ferrous sulfate 325 mg (65 mg 325 mg PO DAILY 07/04/24 01/20/25 History
iron) tablet
levothyroxine 50 mcg tablet 50 mcg PO DAILY 07/04/24 01/20/25 History
lisinopril 5 mg tablet 5 mg PO DAILY 07/04/24 01/20/25 History
pantoprazole 20 mg tablet,delayed 20 mg PO DAILY 07/04/24 01/20/25 History
release
rosuvastatin 40 mg tablet 40 mg PO DAILY 07/04/24 01/20/25 History
ezetimibe 10 mg tablet 10 mg PO DAILY #30 tabs 07/05/24 01/20/25 Rx
ticagrelor 90 mg tablet (Brilinta) 90 mg PO BID #60 tabs 07/05/24 01/20/25 Rx
Review of Systems
-
History Source: Patient
All other systems: Negative unless noted
Constitutional: No Symptoms
EENT: No Symptoms
Respiratory: No Symptoms
Cardiac: No Symptoms
Abdomen/GI: No Symptoms
: No Symptoms
Musculoskeletal: No Symptoms
Skin: No Symptoms
Neurological: No Symptoms
Endocrine: No Symptoms
Hematologic/Lymphatic: No Symptoms
Physical Exam
Vital Signs
Temp Pulse Resp BP Pulse Ox
97.4 F 58 16 110/63 97
01/21/25 05:52 01/21/25 07:45 01/21/25 05:52 01/21/25 05:53 01/21/25 05:53
Lab Results
01/21/25 06:00
Troponin I 0.155 ng/ml H* D 01/21/25 06:00
Physical Exam
General: Well Developed, Well Nourished, No Apparent Distress and Comfortable
HEENT: Normocephalic, Anicteric and Moist Mucous Membranes
Respiratory: Clear and Non Labored Respirations
Cardiac: S1/S2 and Regular Rhythm; Negative Peripheral Edema
Breast: Deferred by me
GI: Soft, Non Tender, Non Distended and Normal Bowel Sounds
Rectal: Deferred by Provider
Genito-urinary: No Costovertebral Tender
Musculoskeletal: No Clubbing, No Cyanosis and No Edema
Skin: Warm and Dry
Neuro: AO x 3
Hematologic/Lymphatic: No Lymphadenopathy
Psych: Calm
Impression / Plan
-
IMPRESSION/PLAN: 84M with coronary artery disease (most recent PCI 06/2024), hypertension, dyslipidemia, CKD3a, type 2 diabetes mellitus, first-degree atrioventricular block, and PVCs who presented to the emergency department with a chief complaint
of chest pain.
Primary Bridge Teacher: Dr. Phipps
NSTEMI
-Chest pain-free
-Trend troponin to peak, currently 0.155
-Reviewed prior cardiac catheterization report, there was a plan for staged PCI if he was not symptom-free
-Continue aspirin, ticagrelor, and heparin drip
-Cardiac catheterization on Thursday if he remains chest pain-free
CAD
-RCA PCI 2000, RPDA angioplasty 2000, most recent PCI to the LAD 06/2024
-Continue medical management and risk factor modification
PVC
-Bigeminy overnight, denies palpitations, continue beta-richa
HTN, lisinopril was stopped by Dr. Rollins at office visit, continue amlodipine
CKD3a, follows with Dr. Rollins, consider pre-treatment prior to cardiac catheterization on Thursday
HLD, on rosuvastatin, fasting lipid panel is pending, if LDL is >70, consider PCSK9i in the outpatient setting
NIDDM, HgbA1c pending
Data Reviewed
-
EKG: Report Reviewed by me
Medical Tests (Nuc Med, Echo etc): Report Reviewed by me
Labs: Labs Reviewed by me
Old Records: Reviewed
[2025-01-21 08:02] LABS: ALT (SGPT) < 10 U/L (0-50); AST (SGOT) 16 U/L (17-59); Albumin 3.6 g/dl (3.5-5.0); Alkaline Phosphatase 56 U/L (38-126); Blood Urea Nitrogen 20 mg/dl (9-20); Calcium 9.1 mg/dl (8.4-10.2); Carbon Dioxide 27 mmol/L (22-30); Chloride 106 mmol/L (98-107); Estimated Creatinine Clearance 44 ml/min; Glucose 62 mg/dl (70-99); HDL Cholesterol 73 mg/dl; LDL Cholesterol, Calculated 86 mg/dl; Magnesium 2.2 mg/dl (1.6-2.3); Potassium 4.3 mmol/L (3.5-5.1); Sodium 137 mmol/L (135-145); Total Bilirubin 0.4 mg/dl (0.2-1.3); Total Cholesterol 178 mg/dl (50-199); Triglyceride 98 mg/dl (10-149); Very Low Density Lipoprotein 19 mg/dl (0-30); eGFR 59.63
[2025-01-21] MEDS: PROTONIX 20 MG PO (08:41)
[2025-01-21] MEDS: LOW STRENGTH ASPIRIN 81 MG PO (08:41)
[2025-01-21] MEDS: BRILINTA 90 MG PO ×2 (08:41→21:12)
[2025-01-21] MEDS: ZETIA 10 MG PO (08:41)
[2025-01-21] MEDS: VITAMIN B-12 100 MCG PO (08:41)
[2025-01-21] MEDS: FEOSOL 325 MG PO (08:41)
[2025-01-21] MEDS: LOPID 600 MG PO ×2 (08:41→21:12)
[2025-01-21] MEDS: PEPCID 20 MG PO (08:41)
[2025-01-21] MEDS: VITAMIN B-6 100 MG PO (08:42)
[2025-01-21] MEDS: ZESTRIL PO (08:42)
[2025-01-21] MEDS: NORVASC PO (08:42)
[2025-01-21] MEDS: CRESTOR 40 MG PO (08:42)
[2025-01-21 12:18] LABS: Glucose - Point of Care 165 mg/dl (70-99)
--- NOTE | 2025-01-21 12:58 | PTCARENOTE ---
Heparin gtt infusing at 650 units/hr. Pt currently has no complaints of pain/discomfort at this time. Tele- SR. Assessment completed as documented. Plan of care reviewed w/ pt. Verbalizes understanding. at bedside. Currently in bed; call nguyen
w/in reach.
[2025-01-21 14:20] LABS: APTT 73.9 Sec (23.4-35.0)
[2025-01-21 14:41] LABS: Troponin I 0.257 ng/ml
[2025-01-21] MEDS: NOVOLOG FLEXPEN-LOW RESISTANCE SC (14:59)
[2025-01-21 15:00] LABS: Glucose - Point of Care 102 mg/dl (70-99)
[2025-01-21 17:49] LABS: Glucose - Point of Care 205 mg/dl (70-99)
[2025-01-21] MEDS: NOVOLOG FLEXPEN-LOW RESISTANCE 2 UNITS SC (18:06)
[2025-01-21 20:32] LABS: APTT 70.9 Sec (23.4-35.0)
[2025-01-21 20:59] LABS: Troponin I 0.245 ng/ml
[2025-01-21] MEDS: TOPROL XL 50 MG PO (21:12)
[2025-01-21 22:41] LABS: Glucose - Point of Care 199 mg/dl (70-99)
[2025-01-22] VITALS (9 sets, daily range): BP systolic 114–142; BP diastolic 50–119
--- NOTE | 2025-01-22 01:15 | PTCARENOTE ---
Pt remains in NSR with first degree AVB, HR 60s. Heparin gtt currently infusing at 750units/hr, pt with no complaints of CP. Plan of care discussed with pt and who verbalize understanding. Can make needs known. Call nguyen within reach.
[2025-01-22 03:03] LABS: % Basophils 1.1 % (0-2); % Eosinophils 1.1 % (0-6); % Immature Granulocytes 0.3 % (0-0.5); % Lymphocytes 30.9 % (20.5-51.1); % Monocytes 12.1 % (1.7-9.3); % Neutrophils 54.5 % (42.2-75.2); Absolute Lymphocytes 1.1 10^3/uL (1.2-3.4); Absolute Monocytes 0.4 10^3/uL (0.1-0.6); Absolute Neutrophils 1.9 10^3/uL (1.4-6.5); Hematocrit 29.3 % (39.0-52.0); Mean Corp Hgb Conc. 34.1 g/dL (33.0-37.0); Mean Corpuscular Hgb 32.2 pg (27.0-31.0); Mean Corpuscular Volume 94.2 fL (80.0-94.0); Nucleated Red Blood Cells % 0 % (-); Platelet Count 155 10^3/uL (130-400); Red Blood Cell Count 3.11 10^6/uL (4.70-6.10); White Blood Cell Count 3.6 10^3/uL (4.8-10.8)
[2025-01-22 03:14] LABS: APTT 89.2 Sec (23.4-35.0)
[2025-01-22 03:30] LABS: Troponin I 0.223 ng/ml
[2025-01-22 04:31] LABS: ALT (SGPT) 10 U/L (0-50); AST (SGOT) 18 U/L (17-59); Albumin 3.6 g/dl (3.5-5.0); Alkaline Phosphatase 57 U/L (38-126); Blood Urea Nitrogen 21 mg/dl (9-20); Calcium 9.1 mg/dl (8.4-10.2); Carbon Dioxide 25 mmol/L (22-30); Chloride 103 mmol/L (98-107); Estimated Creatinine Clearance 48 ml/min; Glucose 106 mg/dl (70-99); Potassium 4.1 mmol/L (3.5-5.1); Sodium 136 mmol/L (135-145); Total Bilirubin 0.4 mg/dl (0.2-1.3); eGFR > 60.00
[2025-01-22] MEDS: SYNTHROID 50 MCG PO (06:40)
[2025-01-22 07:37] LABS: Glucose - Point of Care 105 mg/dl (70-99)
[2025-01-22] MEDS: VITAMIN B-12 100 MCG PO (07:37)
[2025-01-22] MEDS: ZETIA 10 MG PO (07:37)
[2025-01-22] MEDS: CRESTOR 40 MG PO (07:37)
[2025-01-22] MEDS: LOW STRENGTH ASPIRIN 81 MG PO (07:37)
[2025-01-22] MEDS: LOPID 600 MG PO ×2 (07:37→21:41)
[2025-01-22] MEDS: PEPCID 20 MG PO (07:37)
[2025-01-22] MEDS: PROTONIX 20 MG PO (07:37)
[2025-01-22] MEDS: VITAMIN B-6 100 MG PO (07:38)
[2025-01-22] MEDS: FEOSOL 325 MG PO (07:38)
[2025-01-22] MEDS: BRILINTA 90 MG PO ×2 (07:38→21:41)
[2025-01-22] MEDS: NOVOLOG FLEXPEN-LOW RESISTANCE SC (07:40)
[2025-01-22] MEDS: NORVASC 5 MG PO (09:33)
[2025-01-22] MEDS: ZESTRIL PO (09:36)
[2025-01-22 09:44] LABS: APTT 106.8 Sec (23.4-35.0)
--- NOTE | 2025-01-22 09:49 | W.PN.CD ---
Today's Communication / Plan
-
cath tomorrow
Impression / Plan
-
IMPRESSION/PLAN: 84M with coronary artery disease (most recent PCI 06/2024), hypertension, dyslipidemia, CKD3a, type 2 diabetes mellitus, first-degree atrioventricular block, and PVCs who presented to the emergency department with a chief complaint
of chest pain.
Primary Surgical Endoscopist: Dr. Phipps
NSTEMI
-Chest pain-free
-Trop peaked at .223
-Reviewed prior cardiac catheterization report, there was a plan for staged PCI if he was not symptom-free
-Continue aspirin, ticagrelor, and heparin drip
-Cardiac catheterization on Thursday if he remains chest pain-free
CAD
-RCA PCI 2000, RPDA angioplasty 2000, most recent PCI to the LAD 06/2024
-Continue medical management and risk factor modification
PVC
-Bigeminy overnight, denies palpitations, continue beta-richa
HTN, lisinopril was stopped by Dr. Rollins at office visit, continue amlodipine
CKD3a, follows with Dr. Rollins, consider pre-treatment prior to cardiac catheterization on Thursday
HLD, on rosuvastatin, fasting lipid panel is pending, if LDL is >70, consider PCSK9i in the outpatient setting
NIDDM, HgbA1c pending
Subjective: no new complaints
Physical Exam
Vital Signs/Labs
Vital Signs
Temp Pulse Resp BP Pulse Ox
97.6 F 58 20 128/67 97
01/22/25 07:22 01/22/25 07:21 01/22/25 07:22 01/22/25 07:21 01/22/25 07:22
01/21/25 01/22/25 01/23/25
06:59 06:59 06:59
Actual Weight 158 lb 4.67 oz
01/22/25 02:48
01/22/25 02:49
APTT 106.8 Sec (23.4-35.0) H 01/22/25 09:24
Magnesium 2.2 mg/dl (1.6-2.3) 01/21/25 06:00
Triglycerides 98 mg/dl (10-149) 01/21/25 06:00
LDL Cholesterol, Calc 86 mg/dl 01/21/25 06:00
VLDL Cholesterol, Calc 19 mg/dl (0-30) 01/21/25 06:00
HDL Cholesterol 73 mg/dl 01/21/25 06:00
LAB Results
01/20/25 01/21/25 01/21/25
21:37 01:36 06:00
Troponin I 0.084 H* 0.085 H* 0.155 H* D
01/21/25 01/21/25 01/22/25
14:00 20:05 02:49
Troponin I 0.257 H* D 0.245 H* 0.223 H*
Physical Exam
Constitutional: No acute distress
EENT: Anicteric
Cardiovascular: Rhythm & rate is regular
Respiratory: Respiratory effort normal and Lungs clear to auscul.
GI: Soft
Neuro/Psych: AO x 3
Data Reviewed
-
Date of Service: January 22, 2025
Medical Decision Making: Reviewed Test Results (cath)
EKG: Tracing Personally Visualized and interpreted (sr)
Echo: Report Reviewed by me
Labs: Labs Reviewed by me
--- NOTE | 2025-01-22 10:47 | PTCARENOTE ---
Rec'd pt at handoff. Heparin gtt infusing at 750 units/hr. Pt has no complaints CP/SOB/discomfort. Plan of care reviewed w/ pt. Verbalizes understanding. Pt aware of NPO status at midnight for cath tomorrow.
[2025-01-22] MEDS: HEPARIN 25000 UNITS/250 ML IV (10:52)
--- NOTE | 2025-01-22 11:11 | W.PN.HOSP.TC ---
Today's Communication/Plan
-
see bold
Assessment / Plan
Assessment / Plan
Gen: NAD, AAOx3.
Eyes: EOMI, PERRLA, no scleral icterus.
Neck: supple.
CV: remains RRR, +S1/S2, no m/r/g.
Resp: CTAB anteriorly, no rales, wheezes, or rhonchi.
Abd: +BS, soft, NT, ND
Skin: No rashes.
Neuro: remains CN 2-12 intact, non-focal.
Psych: Normal mood and affect.
Acute NSTEMI:
-h/o CAD s/p STEVEN to RCA (2000), LAD stent June 2024
-EKG: Sinus rhythm 76 bpm with first-degree AV block nonspecific ST abnormality lead I with flattening QTc 434 MS
-trend trop (peaked at 0.257)
-cont ASA/BB/Brilinta/statin
-cont heparin gtt
-cath tomorrow
Other problems:
Chronic anemia/B12 deficiency: cont B12
Essential HTN: cont ACEi/BB/Norvasc
HLD: Cont gemfibrozil/Zetia/Crestor
DM2: a1c 8.0%, holding home meds, SSI/accuchecks
Hypothyroidism: cont Levoxyl
GERD: cont PPI
Cervical and lumbar DJD
FULL/heparin
Anticipated Discharge: 24 - 48 hours
Subjective/Interval History
-
Date of Service: January 22, 2025
Denies chest pain.
Objective Data
-
Labs:
Laboratory Results
01/22/25 01/22/25 01/22/25
02:48 02:49 09:24
WBC 3.6 L
Hgb 10.0 L
Hct 29.3 L
Plt Count 155
APTT 89.2 H 106.8 H
Sodium 136
Potassium 4.1
Chloride 103
Carbon Dioxide 25
BUN 21 H
Creatinine 1.1
Glucose 106 H
Calcium 9.1
Total Bilirubin 0.4
AST 18
ALT 10
Alkaline Phosphatase 57
Vital Signs:
Vital Signs
Temp Pulse Resp BP Pulse Ox
97.6 F 58 20 128/67 97
01/22/25 07:22 01/22/25 07:21 01/22/25 07:22 01/22/25 07:21 01/22/25 07:22
I&O
01/21/25 01/22/25 01/23/25
06:59 06:59 06:59
Intake Total 1000 / 1000
Output Total 300 / 300 500 / 500
Balance -300 / -300 500 / 500
[2025-01-22 14:30] LABS: Glucose - Point of Care 157 mg/dl (70-99)
[2025-01-22] MEDS: NOVOLOG FLEXPEN-LOW RESISTANCE 1 UNITS SC (15:52)
[2025-01-22 18:18] LABS: Glucose - Point of Care 286 mg/dl (70-99)
[2025-01-22] MEDS: NOVOLOG FLEXPEN-LOW RESISTANCE 3 UNITS SC (18:18)
[2025-01-22 21:23] LABS: Glucose - Point of Care 342 mg/dl (70-99)
[2025-01-22] MEDS: TOPROL XL 50 MG PO (21:41)
[2025-01-22] MEDS: NOVOLOG FLEXPEN 4 UNITS SC (21:43)
[2025-01-22 22:01] LABS: Glucose - Point of Care 290 mg/dl (70-99)
[2025-01-22 23:41] LABS: Glucose - Point of Care 114 mg/dl (70-99)
[2025-01-23] VITALS (13 sets, daily range): BP systolic 104–134; BP diastolic 54–74; BMI 23.5
[2025-01-23 04:34] LABS: APTT 90.5 Sec (23.4-35.0)
[2025-01-23 04:35] LABS: % Eosinophils 1.7 % (0-6); % Immature Granulocytes 0.2 % (0-0.5); % Lymphocytes 26.6 % (20.5-51.1); % Monocytes 11.8 % (1.7-9.3); % Neutrophils 58.7 % (42.2-75.2); Absolute Eosinophils 0.1 10^3/uL (0-0.7); Absolute Lymphocytes 1.1 10^3/uL (1.2-3.4); Absolute Monocytes 0.5 10^3/uL (0.1-0.6); Absolute Neutrophils 2.4 10^3/uL (1.4-6.5); Hemoglobin 10.2 g/dL (13.0-18.0); Mean Corpuscular Hgb 31.8 pg (27.0-31.0); Mean Corpuscular Volume 93.5 fL (80.0-94.0); Mean Platelet Volume 10.6 fL (7.4-10.4); Nucleated Red Blood Cells % 0 % (-); Platelet Count 175 10^3/uL (130-400); Red Blood Cell Count 3.21 10^6/uL (4.70-6.10); White Blood Cell Count 4.1 10^3/uL (4.8-10.8)
--- NOTE | 2025-01-23 04:59 | PTCARENOTE ---
Received pt at shift change. NSR with first degree and bigeminy on tele, HR 50s-60s. No complaints of CP or SOB. Plan of care discussed and pt verbalizes understanding. NPO since midnight for cardiac cath. Call nguyen within reach.
[2025-01-23 05:00] LABS: ALT (SGPT) 11 U/L (0-50); AST (SGOT) 23 U/L (17-59); Albumin 4.2 g/dl (3.5-5.0); Alkaline Phosphatase 55 U/L (38-126); Blood Urea Nitrogen 21 mg/dl (9-20); Calcium 9.6 mg/dl (8.4-10.2); Carbon Dioxide 26 mmol/L (22-30); Chloride 103 mmol/L (98-107); Estimated Creatinine Clearance 48 ml/min; Glucose 77 mg/dl (70-99); Potassium 4.2 mmol/L (3.5-5.1); Sodium 137 mmol/L (135-145); Total Bilirubin 0.8 mg/dl (0.2-1.3); Total Protein 6.6 g/dl (6.3-8.2); eGFR > 60.00
[2025-01-23] MEDS: NSS 500 IV (06:12)
[2025-01-23] MEDS: SYNTHROID 50 MCG PO (06:12)
--- NOTE | 2025-01-23 07:30 | W.PN.HOSP.TC ---
Addendum entered and electronically signed by Mary Todd MD 01/23/25 20:23:
I saw and evaluated the patient independently. I reviewed the resident�s note and agree with findings and plan as documented by Dr. Valadez.
GENERAL: well developed, well nourished, male in no apparent distress
HEENT: NC/AT
HEART: regular rate and rhythm, +S1, +S2
LUNGS : clear to auscultation bilaterally
ABDOM: soft, nontender, nondistended, + bowel sounds
EXT: no cyanosis, clubbing, or edema
NEUROLOGIC: grossly intact
Acute NSTEMI--currently CP free--troponin peaked at 0.257--Patient has a history of coronary artery disease STEVEN to RCA (2000), LAD stent June 2024--apprec cards--for cardiac cath today, with 90% ostial LAD in stent restenosis--cont asa, statin,
Brilinta, beta richa
Essential hypertension--Continue amlodipine plus other meds as able
CKD stage IIIa--Follows with Dr. Rollins in the outpatient setting
Hyperlipidemia--multidrug resistent--cont crestor, zetia, gemfibrozil
Bet-imhcuoz-imrtrhlov diabetes mellitus--Hemoglobin A 1C elevated at 8.0--cont glipizide, januvia
hypothyroid--cont levothyroxine
CODE STATUS-- Full code
DVT Proph
Original Note:
Today's Communication/Plan
-
Patient tolerated left heart catheterization which showed findings as described in the assessment/plan portion of this note. Patient will likely need a high potency statin on discharge with a goal LDL of less than 55. Cardiology also recommends
dual antiplatelet therapy with aspirin and ticagrelor for at least 12 months followed by aspirin indefinitely. Appreciate cardiology recommendations.
Assessment / Plan
Assessment / Plan
Assessment/Plan:
Acute NSTEMI:
Patient has a history of coronary artery disease STEVEN to RCA (2000), LAD stent June 2024
EKG showed a sinus rhythm with 76 bpm, first-degree AV block, nonspecific ST abnormality in lead I with flattening of QTc
Continue to trend troponins -peaked at 0.257 at 01/21/2025 at 14:00 and trended downwards. On 01/22/2025 the troponin trended down to 0.223
Appreciate cardiology recommendations
Continue ASA, beta-richa, Brilinta, and statin
Cardiac cessation conducted on 01/23/2025 showed�Right dominant circulation with an abnormal origin of the RCA requiring an AL-1 catheter for engagement, a 50% ostial RCA lesion, a 20% ISR lesion in the proximal RCA stent, a 50% mid RCA lesion,
luminal irregularities at the crux, a 10% ISR lesion of the RCA stent spanning the origin of the RPDA with mild RPDA narrowing, a 50% ostial circumflex lesion due to plaque shift from prior ostial LAD PCI, a 30% lesion in the mid LAD distal to the
previously stented segment and a culprit, 90% in-stent restenosis lesion in the ostial LAD stent, status post successful IVUS guided PCI (Xience raj point 3.5 x 12 STEVEN, postdilated with a 3.75 x 8 NC balloon to 16 ga) with reduction in stenosis to
0%, maintaining JESSE-3 flow in the LAD and circumflex. Normal filling pressures (LVEDP = 9 mmHg at 69.9 kg).
-Essential hypertension:
Continue amlodipine
-CKD stage IIIa:
Follows with Dr. Rollins in the outpatient setting
-Hyperlipidemia:
Continue rosuvastatin
Continue ezetimibe
Continue gemfibrozil
-Vjl-vuqdypw-izuconbyz diabetes mellitus:
Hemoglobin A 1C elevated at 8.0
Low resistance insulin sliding scale
CODE STATUS: Full code
Stress Ulcer Prophylaxis: Famotidine
DVT Prophylaxis: Heparin (held prior to catheterization)
Imaging:
Procedure:
-Left heart catheterization conducted on 01/23/2025:
CONCLUSIONS
1. Right dominant circulation with an abnormal origin of the RCA requiring an AL-1 catheter for engagement, a 50% ostial RCA lesion, a 20% ISR lesion in the proximal RCA stent, a 50% mid RCA lesion, luminal irregularities at the crux, a 10% ISR
lesion of the RCA stent spanning the origin of the RPDA with mild RPDA narrowing, a 50% ostial circumflex lesion due to plaque shift from prior ostial LAD PCI, a 30% lesion in the mid LAD distal to the previously stented segment and a culprit, 90%
in-stent restenosis lesion in the ostial LAD stent, status post successful IVUS guided PCI (Xience raj point 3.5 x 12 STEVEN, postdilated with a 3.75 x 8 NC balloon to 16 ga) with reduction in stenosis to 0%, maintaining JESSE-3 flow in the LAD and
circumflex.
2. Normal filling pressures (LVEDP = 9 mmHg at 69.9 kg).
RECOMMENDATIONS:
1. Expectant management after cardiac catheterization via right radial approach.
2. Limited weight bearing on the right wrist for one week.
3. Continue dual antiplatelet therapy with aspirin and ticagrelor for at least 12 months, followed by aspirin indefinitely.
4. Careful symptom assessment given the plaque shift into the circumflex artery. If the patient were to develop angina, we could consider a circumflex intervention (likely a double barrel PCI with kissing balloons in the circumflex and LAD).
5. Aggressive secondary prevention with high-dose, high potency statin. Continue ezetimibe. Goal LDL <55.
6. OMT/GDMT as hemodynamics will tolerate.
7. Referral to cardiac rehab.
Anticipated Discharge: 24 - 48 hours
Subjective/Interval History
-
Date of Service: January 23, 2025
Met with patient at the bedside. He is doing well and offers no complaints at the present time. He is aware that he is slated to go down to the [employer] [facility] [facility] later on this day.
Objective Data
-
Labs:
Labs
01/23/25 03:47
01/23/25 03:47
Vital Signs:
Vital Signs
Temp Pulse Resp BP Pulse Ox
97.4 F 60 18 132/58 99
01/23/25 19:04 01/23/25 19:03 01/23/25 19:04 01/23/25 19:03 01/23/25 19:11
I&O
01/22/25 01/23/25 01/24/25
06:59 06:59 06:59
Intake Total 1000 / 1000 400 / 400 1480 / 1480
Output Total 500 / 500 400 / 400
Balance 500 / 500 400 / 400 1080 / 1080
Review of Systems
-
History Source: Patient
Constitutional: Reports No Symptoms
EENT: Reports No Symptoms Reported
Respiratory: Reports No Symptoms
Cardiac: Reports No Symptoms
Abdomen/GI: Reports No Symptoms
Breast: Reports No Symptoms
Genitourinary: Reports No Symptoms
Musculoskeletal: Reports No Symptoms
Skin: Reports No Symptoms
Neuro: Reports No Symptoms
Endocrine: Reports No Symptoms
Physical Exam
-
General: Well Developed, Well Nourished, No Apparent Distress and Comfortable
HEENT: Normocephalic and Atraumatic
Respiratory: Clear to Auscultation
Cardiac: S1/S2; Negative Murmur, Rub or JVD
GI: Soft, Nontender, Nondistended and Normal Bowel Sounds
Rectal: Deferred by Provider
Genito-urinary: Deferred by me
Musculoskeletal: No Clubbing, No Cyanosis and No Edema
Skin: Warm and Dry; Negative Ulcers
Neuro: Awake, Alert, Oriented and AO x 3
Psych: Calm
[2025-01-23 07:35] LABS: Glucose - Point of Care 99 mg/dl (70-99)
[2025-01-23] MEDS: LOPID 600 MG PO ×2 (08:06→20:03)
[2025-01-23] MEDS: NORVASC 5 MG PO (08:06)
[2025-01-23] MEDS: PEPCID 20 MG PO (08:06)
[2025-01-23] MEDS: ZESTRIL 5 MG PO (08:06)
[2025-01-23] MEDS: BRILINTA 90 MG PO ×2 (08:06→20:03)
[2025-01-23] MEDS: FEOSOL 325 MG PO (08:07)
[2025-01-23] MEDS: VITAMIN B-6 100 MG PO (08:07)
[2025-01-23] MEDS: LOW STRENGTH ASPIRIN 81 MG PO (08:07)
[2025-01-23] MEDS: PROTONIX 20 MG PO (08:07)
[2025-01-23] MEDS: CRESTOR 40 MG PO (08:07)
[2025-01-23] MEDS: ZETIA 10 MG PO (08:07)
[2025-01-23] MEDS: VITAMIN B-12 100 MCG PO (08:07)
[2025-01-23 08:14] LABS: Glucose - Point of Care 100 mg/dl (70-99)
[2025-01-23] MEDS: NOVOLOG FLEXPEN-LOW RESISTANCE SC ×2 (08:23→11:22)
--- NOTE | 2025-01-23 09:23 | PTCARENOTE ---
Assumed care. Denies chest pain, NSR with 1st degree HB 60's. Heparin gtt @ 750 units/hr, NSS at 75cc/hr. NPO for cath today.
[2025-01-23 10:00] LABS: Glucose - Point of Care 105 mg/dl (70-99)
[2025-01-23 11:22] LABS: Glucose - Point of Care 111 mg/dl (70-99)
--- NOTE | 2025-01-23 11:31 | PTCARENOTE ---
Report called to the slab stripper, voided in bed, pants removed, a bedside
[2025-01-23 13:19] LABS: ACT-LR - POC 305 Seconds (116-155)
--- NOTE | 2025-01-23 13:25 | ITS.CL.ANGIO ---
Decatizer - Angioplasty
Angioplasty
Procedure Report:
CARDIAC CATHETERIZATION REPORT
Date of Procedure: 01/23/2025
Referring: Sean Rangel M.D.
INDICATION: Non-ST elevation myocardial infarction.
PROCEDURE:
1. Left heart catheterization.
2. Coronary angiography.
3. Successful IVUS guided PCI of the ostial LAD ISR.
A total of 62 minutes of procedural/moderate sedation was utilized. An independent medical technicians was present to assist with and help manage the patient's level of consciousness and physiologic status.
ACCESS:
1. 6 Swedish right radial artery using a modified Seldinger technique.
CATHETERS:
1. 5 Swedish AL-1.
2. 5 Swedish JL 3.5.
3. 6 Swedish JL 3.5 guiding catheter.
HEMODYNAMIC DATA
Weight (kg): 69.9
AO (s/d/x, mmHg): 93/9
LV (s/x mmHg): 92/47/61
LEFT VENTRICULOGRAPHY: Not performed.
CORONARY ANGIOGRAPHY
Dominance: Right.
Left Main: Short, trifurcating vessel. There is no coronary artery disease.
LAD: Normal size vessel giving rise to 1 significant diagonal before wrapping around the apex. A patent stent is visible in the ostial and proximal LAD with a 90% in-stent restenosis lesion in the proximal margin of the stent near the ostium of
the vessel. There it is a 30% lesion immediately distal to the stented segment and luminal irregularities throughout the remainder of the LAD.
Ramus: Small, vestigial vessel. There is no coronary artery disease.
Circumflex: Normal size, nondominant vessel that is essentially a single large marginal supplying the lateral wall. This vessel bifurcates into a larger upper branch and a smaller lower branch. There is a 50% lesion in the ostium of the vessel
due to plaque shift from the previously placed LAD stent.
RCA: Large size, dominant vessel with an abnormal origin requiring an AL-1 catheter for engagement from the radial artery. There is an ostial 50% lesion. A patent stent is present in the proximal vessel with 20% in-stent restenosis in its
proximal margin. This is followed by a 50% lesion in the mid RCA, luminal irregularities around the crux and a patent stent in the distal RCA spanning the origin of the RPDA with 10% in-stent restenosis. The origin of the RPDA is mildly narrowed.
INTERVENTION(S)
1. Successful IVUS guided PCI of the 90% ostial LAD ISR lesion (Xience Skypoint 3.5 x 12 STEVEN, postdilated with a 3.75 x 8 NC balloon to 16 ga) with reduction in stenosis to 0%, maintaining JESSE-3 flow in the LAD as well as the circumflex.
Narrative:
The decision was made to proceed with percutaneous coronary intervention. The diagnostic catheter was removed over a wire and a 6Fr JL 3.5 guiding catheter was advanced to the aortic root and seated in the left main coronary artery. Additional
heparin was given and a Power Turn Flex wire was advanced into the distal obtuse marginal. A BMW wire was advanced into the distal LAD. The 90% ostial LAD ISR lesion was predilated with a 2.0 x 12 semi-compliant balloon to 12 ga.
The decision was made to perform intracoronary imaging. An IVUS catheter was advanced through the guiding catheter and into the ostium of the artery. Ring down was performed once the imaging crystal was no longer inside of the guiding catheter. The
IVUS catheter was advanced into the mid LAD. Intravascular ultrasound was performed in a retrograde fashion using a slow pullback. Intracoronary imaging demonstrated significant atherosclerosis throughout the entire proximal LAD. The stent appeared
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
The IVUS catheter was withdrawn and a 3.5 x 12 noncompliant balloon was advanced. The proximal LAD ISR lesion was dilated to 14 ga. There appeared to be reasonable expansion, though we were never entirely certain that the proximal margin expanded
to see our satisfaction. The 3.5 x 12 noncompliant balloon was removed and a 4.0 x 8 noncompliant balloon was advanced. The lesion was dilated to 12 ga. The noncompliant balloon was withdrawn and IVUS was reinserted. This showed a significant
improvement in the intraluminal area of the ostial LAD with improved expansion of the stented segment. The decision was made to proceed with PCI of the ISR lesion.
The IVUS catheter was removed and a Xience Skypoint 3.5 x 12 drug-eluting stent was advanced. Meticulous care was taken while positioning the stent, ensuring that the lesion was covered but that the stent did not extend into the left main coronary
artery. The stent was deployed at 12 atmospheres. The stent balloon was removed.
IVUS was repeated, showing good stent expansion and apposition throughout the newly stented segment. Out of an abundance of caution, we elected to post dilate slightly more aggressively to avoid further issues with ISR.
A 3.75 x 8 noncompliant balloon was advanced into the stent and the stent was postdilated to 16 atmospheres. Angiography was performed in orthogonal views, confirming good stent expansion and an excellent angiographic result. The ostial circumflex
remained comparatively narrowed, but not significantly worse than prior to the repeat intervention. There was JESSE-3 flow in the vessel. The coronary wires were withdrawn and the guide was disengaged from the artery. The catheter was removed over
a standard J-wire.
Closure Device: Vascular band.
Radiation (mGy): 967.28
DAP (cm2.Gy): 15.2429
Fluoroscopy time (minutes): 13.4
CONCLUSIONS
1. Right dominant circulation with an abnormal origin of the RCA requiring an AL-1 catheter for engagement, a 50% ostial RCA lesion, a 20% ISR lesion in the proximal RCA stent, a 50% mid RCA lesion, luminal irregularities at the crux, a 10% ISR
lesion of the RCA stent spanning the origin of the RPDA with mild RPDA narrowing, a 50% ostial circumflex lesion due to plaque shift from prior ostial LAD PCI, a 30% lesion in the mid LAD distal to the previously stented segment and a culprit, 90%
in-stent restenosis lesion in the ostial LAD stent, status post successful IVUS guided PCI (Xience raj point 3.5 x 12 STEVEN, postdilated with a 3.75 x 8 NC balloon to 16 ga) with reduction in stenosis to 0%, maintaining JESSE-3 flow in the LAD and
circumflex.
2. Normal filling pressures (LVEDP = 9 mmHg at 69.9 kg).
RECOMMENDATIONS:
1. Expectant management after cardiac catheterization via right radial approach.
2. Limited weight bearing on the right wrist for one week.
3. Continue dual antiplatelet therapy with aspirin and ticagrelor for at least 12 months, followed by aspirin indefinitely.
4. Careful symptom assessment given the plaque shift into the circumflex artery. If the patient were to develop angina, we could consider a circumflex intervention (likely a double barrel PCI with kissing balloons in the circumflex and LAD).
5. Aggressive secondary prevention with high-dose, high potency statin. Continue ezetimibe. Goal LDL <55.
6. OMT/GDMT as hemodynamics will tolerate.
7. Referral to cardiac rehab.
Copy to: Sean Rangel M.D., Slim Ferris M.D., Jimenez Phipps M.D., Ph.D.
Dwayne Veloz DO, FACC, FACP
[2025-01-23 13:30] LABS: ACT-LR - POC > 397 Seconds (116-155)
[2025-01-23 13:30] LABS: ACT-LR - POC > 397 Seconds (116-155)
[2025-01-23 13:49] LABS: Glucose - Point of Care 116 mg/dl (70-99)
--- NOTE | 2025-01-23 13:55 | PTCARENOTE ---
Patient received from the collaborating supervising physician. Right radial band in place, POX 99%. NSR with a 1st degree HB with occasional PVC's, BP 124/58. Patient awake and alert. at bedside
--- NOTE | 2025-01-23 14:07 | CM ---
spoke to pt in room, he is prev indep, lives with his in a 2 story home with 1 step to enter. he denies any dc planning needs or dme's. plan is for dc to home when medically stable.
--- NOTE | 2025-01-23 15:23 | PTCARENOTE ---
Swelling and tenderness right forearm. No swelling at the radial site, POX 97%. Call placed to Catie Interiano at bedside. Applied warm compress removed the right AC IV access, elevated applied pressure for 10 minutes.
[2025-01-23 17:50] LABS: Glucose - Point of Care 257 mg/dl (70-99)
--- NOTE | 2025-01-23 18:24 | PTCARENOTE ---
Right radial band oozing. Arm elevated, 3 cc of air replaced.
[2025-01-23] MEDS: NOVOLOG FLEXPEN-LOW RESISTANCE 3 UNITS SC (18:49)
--- NOTE | 2025-01-23 20:12 | PTCARENOTE ---
Patient received resting in the bed. Right radial TR band in place, oxygen saturation 98-99% on room air, bilateral radial pulse +2 to palpation. Patient presently denies chest pain, offers no complaints. Sinus tigist with first degree AV block and
prolonged QT on night monitor. Plan of care discussed with patient and spouse. Bed in lowest position, wheels locked. Call nguyen within reach. Care ongoing.
[2025-01-23 22:37] LABS: Glucose - Point of Care 265 mg/dl (70-99)
[2025-01-23] MEDS: TOPROL XL 50 MG PO (22:39)
[2025-01-24 02:13] VITALS: BP 108/60
[2025-01-24 02:19] VITALS: BMI 23.1
[2025-01-24 03:12] LABS: % Basophils 0.6 % (0-2); % Eosinophils 1.6 % (0-6); % Immature Granulocytes 0.4 % (0-0.5); % Monocytes 10.9 % (1.7-9.3); % Neutrophils 67.5 % (42.2-75.2); Absolute Eosinophils 0.1 10^3/uL (0-0.7); Absolute Lymphocytes 0.9 10^3/uL (1.2-3.4); Absolute Monocytes 0.5 10^3/uL (0.1-0.6); Absolute Neutrophils 3.3 10^3/uL (1.4-6.5); Hematocrit 30.1 % (39.0-52.0); Hemoglobin 10.2 g/dL (13.0-18.0); Mean Corp Hgb Conc. 33.9 g/dL (33.0-37.0); Mean Corpuscular Hgb 31.4 pg (27.0-31.0); Mean Corpuscular Volume 92.6 fL (80.0-94.0); Mean Platelet Volume 10.4 fL (7.4-10.4); Nucleated Red Blood Cells % 0 % (-); Platelet Count 168 10^3/uL (130-400); Red Blood Cell Count 3.25 10^6/uL (4.70-6.10); White Blood Cell Count 4.9 10^3/uL (4.8-10.8)
[2025-01-24 03:14] LABS: APTT 34.7 Sec (23.4-35.0)
[2025-01-24 03:26] LABS: ALT (SGPT) 14 U/L (0-50); AST (SGOT) 21 U/L (17-59); Albumin 4.1 g/dl (3.5-5.0); Alkaline Phosphatase 61 U/L (38-126); Blood Urea Nitrogen 18 mg/dl (9-20); Calcium 9.3 mg/dl (8.4-10.2); Carbon Dioxide 23 mmol/L (22-30); Chloride 101 mmol/L (98-107); Estimated Creatinine Clearance 53 ml/min; Glucose 162 mg/dl (70-99); HDL Cholesterol 79 mg/dl; LDL Cholesterol, Calculated 77 mg/dl; Magnesium 2.2 mg/dl (1.6-2.3); Phosphorus 4.3 mg/dl (2.5-4.5); Sodium 134 mmol/L (135-145); Total Bilirubin 0.7 mg/dl (0.2-1.3); Total Cholesterol 169 mg/dl (50-199); Total Protein 6.5 g/dl (6.3-8.2); Triglyceride 67 mg/dl (10-149); Very Low Density Lipoprotein 13 mg/dl (0-30); eGFR > 60.00
[2025-01-24] MEDS: SYNTHROID 50 MCG PO (05:00)
[2025-01-24 07:02] VITALS: BP 119/54
--- NOTE | 2025-01-24 07:30 | W.PN.HOSP.TC ---
Addendum entered and electronically signed by Mary Todd MD 01/24/25 13:39:
I saw and evaluated the patient independently. I reviewed the resident�s note and agree with findings and plan as documented by Dr. Valadez.
GENERAL: well developed, well nourished, male in no apparent distress
HEENT: NC/AT
HEART: regular rate and rhythm, +S1, +S2
LUNGS : clear to auscultation bilaterally
ABDOM: soft, nontender, nondistended, + bowel sounds
EXT: no cyanosis, clubbing, or edema
NEUROLOGIC: grossly intact
Acute NSTEMI--remains CP free--troponin peaked at 0.257--Patient has a history of coronary artery disease STEVEN to RCA (2000), LAD stent June 2024--apprec cards--s/p cardiac cath 01/23/25 with 90% ostial LAD in stent restenosis--cont asa, statin,
Brilinta, beta richa--cleared for d/c by cards and PT
Essential hypertension--Continue amlodipine plus other meds as able
CKD stage IIIa--Follows with Dr. Rollins in the outpatient setting
Hyperlipidemia--multidrug resistant--cont Crestor, Zetia, gemfibrozil
Pcu-txcvnmc-lolsfrqgb diabetes mellitus--Hemoglobin A 1C elevated at 8.0--cont glipizide, Januvia--restart metformin 48 hours post cath
hypothyroid--cont levothyroxine
CODE STATUS-- Full code
DVT Proph
Original Note:
Today's Communication/Plan
-
Patient appears to be back at his baseline and has no complaints. He is post successful PCI of in-stent stenosis of LAD. It is recommended that he continue his DAPT. He is scheduled for a follow-up visit with Dr. Phipps later on this week. PT OT
will assess the patient prior to discharge.
Assessment / Plan
Assessment / Plan
Assessment/Plan:
Acute NSTEMI:
Patient has a history of coronary artery disease STEVEN to RCA (2000), LAD stent June 2024
EKG showed a sinus rhythm with 76 bpm, first-degree AV block, nonspecific ST abnormality in lead I with flattening of QTc
Continue to trend troponins -peaked at 0.257 at 01/21/2025 at 14:00 and trended downwards. On 01/22/2025 the troponin trended down to 0.223
Appreciate cardiology recommendations
Continue ASA, beta-richa, Brilinta, and statin
Cardiac catheterization conducted on 01/23/2025 showed�Right dominant circulation with an abnormal origin of the RCA requiring an AL-1 catheter for engagement, a 50% ostial RCA lesion, a 20% ISR lesion in the proximal RCA stent, a 50% mid RCA
lesion, luminal irregularities at the crux, a 10% ISR lesion of the RCA stent spanning the origin of the RPDA with mild RPDA narrowing, a 50% ostial circumflex lesion due to plaque shift from prior ostial LAD PCI, a 30% lesion in the mid LAD distal
to the previously stented segment and a culprit, 90% in-stent restenosis lesion in the ostial LAD stent, status post successful IVUS guided PCI (Xience raj point 3.5 x 12 STEVEN, postdilated with a 3.75 x 8 NC balloon to 16 ga) with reduction in
stenosis to 0%, maintaining JESSE-3 flow in the LAD and circumflex. Normal filling pressures (LVEDP = 9 mmHg at 69.9 kg).
Patient is post successful PCI of in-stent stenosis of LAD
Cardiology recommends continuing DAPT
PT OT eval prior to discharge
The patient has been scheduled for a follow-up visit with Dr. Phipps in the outpatient setting later on this week
Patient is medically stable and appropriate for discharge from a cardiology standpoint
-Essential hypertension:
Continue amlodipine
-CKD stage IIIa:
Follows with Dr. Rollins in the outpatient setting
-Hyperlipidemia:
Multidrug-resistant
Continue rosuvastatin
Continue ezetimibe
Continue gemfibrozil
-Gzt-mgrtesl-cmutolrlv diabetes mellitus:
Hemoglobin A 1C elevated at 8.0
Low resistance insulin sliding scale
-Hypothyroidism:
Continue levothyroxine
CODE STATUS: Full code
Stress Ulcer Prophylaxis: Famotidine
DVT Prophylaxis: Heparin (held prior to catheterization)
Imaging:
Procedure:
-Left heart catheterization conducted on 01/23/2025:
CONCLUSIONS
1. Right dominant circulation with an abnormal origin of the RCA requiring an AL-1 catheter for engagement, a 50% ostial RCA lesion, a 20% ISR lesion in the proximal RCA stent, a 50% mid RCA lesion, luminal irregularities at the crux, a 10% ISR
lesion of the RCA stent spanning the origin of the RPDA with mild RPDA narrowing, a 50% ostial circumflex lesion due to plaque shift from prior ostial LAD PCI, a 30% lesion in the mid LAD distal to the previously stented segment and a culprit, 90%
in-stent restenosis lesion in the ostial LAD stent, status post successful IVUS guided PCI (Xience raj point 3.5 x 12 STEVEN, postdilated with a 3.75 x 8 NC balloon to 16 ga) with reduction in stenosis to 0%, maintaining JESSE-3 flow in the LAD and
circumflex.
2. Normal filling pressures (LVEDP = 9 mmHg at 69.9 kg).
RECOMMENDATIONS:
1. Expectant management after cardiac catheterization via right radial approach.
2. Limited weight bearing on the right wrist for one week.
3. Continue dual antiplatelet therapy with aspirin and ticagrelor for at least 12 months, followed by aspirin indefinitely.
4. Careful symptom assessment given the plaque shift into the circumflex artery. If the patient were to develop angina, we could consider a circumflex intervention (likely a double barrel PCI with kissing balloons in the circumflex and LAD).
5. Aggressive secondary prevention with high-dose, high potency statin. Continue ezetimibe. Goal LDL <55.
6. OMT/GDMT as hemodynamics will tolerate.
7. Referral to cardiac rehab.
Anticipated Discharge: Today
Subjective/Interval History
-
Date of Service: January 24, 2025
Met with patient at the bedside. He is doing well and reports no complaints. He would like to be discharged if possible and believes that he is back at his baseline.
Objective Data
-
Labs:
Laboratory Results
01/24/25
02:26
WBC 4.9
Hgb 10.2 L
Hct 30.1 L
Plt Count 168
APTT 34.7
Sodium 134 L
Potassium 4.0
Chloride 101
Carbon Dioxide 23
BUN 18
Creatinine 1.0
Glucose 162 H
Calcium 9.3
Total Bilirubin 0.7
AST 21
ALT 14
Alkaline Phosphatase 61
Vital Signs:
Vital Signs
Temp Pulse Resp BP Pulse Ox
97.8 F 55 18 119/54 97
01/24/25 07:04 01/24/25 08:37 01/24/25 07:04 01/24/25 07:02 01/24/25 07:04
I&O
01/23/25 01/24/25 01/25/25
06:59 06:59 06:59
Intake Total 400 / 400 2200 / 2200
Output Total 400 / 400
Balance 400 / 400 1800 / 1800
Review of Systems
-
History Source: Patient
Constitutional: Reports No Symptoms
EENT: Reports No Symptoms Reported
Respiratory: Reports No Symptoms
Cardiac: Reports No Symptoms
Abdomen/GI: Reports No Symptoms
Breast: Reports No Symptoms
Genitourinary: Reports No Symptoms
Musculoskeletal: Reports No Symptoms
Skin: Reports No Symptoms
Neuro: Reports No Symptoms
Endocrine: Reports No Symptoms
Physical Exam
-
General: Well Developed, Well Nourished, No Apparent Distress and Comfortable
HEENT: Normocephalic, Atraumatic and Moist Mucous Membranes
Respiratory: Clear to Auscultation
Cardiac: S1/S2; Negative Murmur, Rub or JVD
Breast: Deferred by me
GI: Soft, Nontender, Nondistended and Normal Bowel Sounds
Rectal: Deferred by Provider
Genito-urinary: Deferred by me
Musculoskeletal: No Clubbing, No Cyanosis and No Edema
Skin: Warm and Dry
Neuro: Awake, Alert, Oriented and AO x 3
--- NOTE | 2025-01-24 08:09 | W.PN.CD ---
Today's Communication / Plan
-
No symptoms overnight
Cardiac catheterization site is fine.
Patient is post successful PCI of in-stent stenosis of LAD
continue DAPT.
Patient will keep follow-up visit with Dr. Phipps which is scheduled for later this week
Patient appears stable for discharge from a cardiology standpoint
Would make sure he feels well after ambulation and after morning meds.
Impression / Plan
-
IMPRESSION/PLAN: 84M with coronary artery disease (most recent PCI 06/2024), hypertension, dyslipidemia, CKD3a, type 2 diabetes mellitus, first-degree atrioventricular block, and PVCs who presented to the emergency department with a chief complaint
of chest pain.
Primary Sonography Technologist: Dr. Phipps
NSTEMI
-Trop peaked at .223
-Continue aspirin, ticagrelor
-Cardiac catheterization -01/23/2025. Patient with LAD 90% in-stent restenosis which was successfully stented with a Xience Skypoint 3.5 x 12 STEVEN
CAD
-RCA PCI 2000, RPDA angioplasty 2000, PCI to the LAD 06/2024. This admission 01/19/2025 PCI of LAD in-stent restenosis
-Continue DAPT
PVC
. continue beta-richa
HTN, lisinopril was stopped by Dr. Rollins at office visit, continue amlodipine
CKD3a, follows with Dr. Rollins, consider pre-treatment prior to cardiac catheterization on Thursday
HLD, on rosuvastatin, fasting lipid panel is pending, if LDL is >70, consider PCSK9i in the outpatient setting
NIDDM, HgbA1c pending
Cardiac catheterization 01/19/2025
CONCLUSIONS
1. Right dominant circulation with an abnormal origin of the RCA requiring an AL-1 catheter for engagement, a 50% ostial RCA lesion, a 20% ISR lesion in the proximal RCA stent, a 50% mid RCA lesion, luminal irregularities at the crux, a 10% ISR
lesion of the RCA stent spanning the origin of the RPDA with mild RPDA narrowing, a 50% ostial circumflex lesion due to plaque shift from prior ostial LAD PCI, a 30% lesion in the mid LAD distal to the previously stented segment and a culprit, 90%
in-stent restenosis lesion in the ostial LAD stent, status post successful IVUS guided PCI (Xience raj point 3.5 x 12 STEVEN, postdilated with a 3.75 x 8 NC balloon to 16 ga) with reduction in stenosis to 0%, maintaining JESSE-3 flow in the LAD and
circumflex.
2. Normal filling pressures (LVEDP = 9 mmHg at 69.9 kg).
Subjective: no new complaints
Physical Exam
Vital Signs/Labs
Vital Signs
Temp Pulse Resp BP Pulse Ox
97.8 F 58 18 119/54 97
01/24/25 07:04 01/24/25 07:02 01/24/25 07:04 01/24/25 07:02 01/24/25 07:04
01/23/25 01/24/25 01/25/25
06:59 06:59 06:59
Actual Weight 70.2 kg 68.9 kg
01/24/25 02:26
01/24/25 02:26
APTT 34.7 Sec (23.4-35.0) 01/24/25 02:26
Magnesium 2.2 mg/dl (1.6-2.3) 01/24/25 02:26
Triglycerides 67 mg/dl (10-149) 01/24/25 02:26
LDL Cholesterol, Calc 77 mg/dl 01/24/25 02:26
VLDL Cholesterol, Calc 13 mg/dl (0-30) 01/24/25 02:26
HDL Cholesterol 79 mg/dl 01/24/25 02:26
LAB Results
01/21/25 01/21/25 01/22/25
14:00 20:05 02:49
Troponin I 0.257 H* D 0.245 H* 0.223 H*
Physical Exam
Constitutional: No acute distress
Cardiovascular: Rhythm & rate is regular
Respiratory: Respiratory effort normal
GI: Soft
Other: Other (cath site fine)
Data Reviewed
-
Date of Service: January 24, 2025
Medical Decision Making: Reviewed Test Results
Medical Tests (PFT, Pathology etc): Report Reviewed by me
Labs: Labs Reviewed by me
[2025-01-24] MEDS: CRESTOR 40 MG PO (08:33)
[2025-01-24] MEDS: BRILINTA 90 MG PO (08:33)
[2025-01-24] MEDS: FEOSOL 325 MG PO (08:34)
[2025-01-24] MEDS: LOPID 600 MG PO (08:35)
[2025-01-24] MEDS: LOW STRENGTH ASPIRIN 81 MG PO (08:35)
[2025-01-24] MEDS: ZETIA 10 MG PO (08:36)
[2025-01-24] MEDS: VITAMIN B-12 100 MCG PO (08:36)
[2025-01-24] MEDS: PROTONIX 20 MG PO (08:36)
[2025-01-24] MEDS: PEPCID 20 MG PO (08:36)
[2025-01-24] MEDS: VITAMIN B-6 100 MG PO (08:36)
[2025-01-24] MEDS: NORVASC PO (08:37)
[2025-01-24] MEDS: ZESTRIL PO (08:37)
[2025-01-24] MEDS: NOVOLOG FLEXPEN-LOW RESISTANCE SC ×2 (08:42→13:48)
[2025-01-24 08:43] LABS: Glucose - Point of Care 134 mg/dl (70-99)
[2025-01-24] MEDS: FLUSH (NSS) 1 FLUSH IV (08:43)
[2025-01-24 10:42] VITALS: BP 105/56
[2025-01-24 10:57] VITALS: BP 103/54
--- NOTE | 2025-01-24 11:10 | W.DCSUMMARY ---
Addendum entered and electronically signed by Mary Todd MD 01/24/25 16:37:
Read, reviewed, and agree. See same day progress note for additional details. Time spent coordinating care, DC planning, review of DC plan of care with resident, transition of care, review of records in EMR, med rec, consults, notes, d/w
consultants, nursing, family, and CM = 37 minutes
Original Note:
Discharge Summary
Discharge Data
Date of Admission: 01/20/25
Date of Discharge: 01/24/25
-
Pending Results: No
Hospital Course
Discharging Physician : Mary Todd MD
Disposition : Home
Primary care physician : Slim Costa
Principal Discharge diagnosis : NSTEMI, s/p angioplasty and stent to Left Anterior Descending artery
Chronic Discharge diagnosis : Coronary artery disease, PTCA with stent to RCA in 2000, LAD stent in June 2024, hypertension, hyperlipidemia, diabetes mellitus type 2, hypothyroidism, cervical and lumbar degenerative joint disease
Hospital Course : Patient is an 84-year-old male who presented to the emergency department after experiencing chest pain that began approximately 5 PM the night prior to his presentation to the emergency department. He has a past medical history
of coronary artery disease, PTCA with stent to RCA in 2000, LAD stent in June 2024, hypertension, hyperlipidemia, diabetes mellitus type 2, hypothyroidism, cervical and lumbar degenerative joint disease. He was walking downstairs and he states
that he took nitroglycerin for 5 out of 10 pain which then subsequently went away. While sitting the pain again returned at 10 PM on the left side of his chest again with a 5 out of 10 pain rating. The pain was nonradiating and he had no
diaphoresis or shortness of breath at the time. His stated that she gave him an additional dose of nitroglycerin prior to coming to the hospital. Upon arrival he still had a chest pain of 3 out of 10 and he was given additional nitroglycerin
which alleviated his pain symptoms. He came to the emergency department 3 times the same week for chest pain which resolved after single dose of nitroglycerin each time. He was seen in the emergency department on both occasions with a normal EKG
and normal troponin but this time his troponin was elevated. The patient denied any fever, chills, headache, cough, shortness of breath, abdominal pain, nausea, vomiting, diarrhea, and urinary symptoms. The patient is compliant with his home
medications and takes his Brilinta ever since having his PCI to LAD in June 2024. He follows with Dr. Phipps for cardiology. EKG conducted in the emergency department showed a sinus rhythm with first-degree AV block. The patient had a slightly
elevated BUN at 21, a glucose of 211, and a troponin of 0.084 that was trended and showed that it was rising upwards. TSH was within normal limits. Cardiology was consulted. He was given aspirin and heparin in the emergency department and
admitted to [facility] with plan for heart catheterization.
Cardiology met with the patient and assessed that the patient is appropriate for heart catheterization. Procedure was scheduled for Thursday. Patient remained on the IVU and was monitored throughout this time prior to the procedure. He was given
B12 for his chronic anemia and B12 deficiency. His LICO inhibitor, beta-richa and Norvasc was continued for his essential hypertension. His gemfibrozil, Zetia, Crestor was also continued for his hyperlipidemia. He was on a low resistant sliding
scale insulin for his type 2 diabetes mellitus. Patient was given levothyroxine for his ongoing hypothyroidism. Patient tolerated his left heart catheterization which showed a 50% ostial RCA lesion, a 20% ISR lesion in the proximal RCA stent, a
50% mid RCA lesion, luminal irregularities at the crux, a 10% ISR lesion of the RCA stent spanning the origin of the RPDA with mild RPDA narrowing, a 50% ostial circumflex lesion due to plaque shift from prior ostial LAD PCI, a 30% lesion in the mid
LAD distal to the previously stented segment and a culprit, 90% in-stent restenosis lesion in the ostial LAD stent, status post successful IVUS guided PCI (Xience raj point 3.5 x 12 STEVEN, postdilated with a 3.75 x 8 NC balloon to 16 ga) with
reduction in stenosis to 0%, maintaining JESSE-3 flow in the LAD and circumflex. Cardiology recommended limited weightbearing of the right wrist for 1 week following the procedure. The patient should continue dual antiplatelet therapy with aspirin
anticoagulant or for at least 12 months followed by aspirin indefinitely. Cardiology recommended secondary prevention with high dose high potency statin and to continue ezetimibe with a goal LDL <55. The patient should undergo cardiac rehab.
The patient has reached maximal benefit from this hospital admission and the patient is appropriate for discharge at the present time. There are no barriers that would impede the patient from being discharged from the hospital at the present time.
The patient should follow-up with their primary care provider within 1 week following discharge. The patient is scheduled for follow-up with outpatient cardiology on February 15, 2025 and [facility] cardiac rehab on March 03, 2025.
Important imaging findings :
-Chest x-ray conducted on 01/21/2025:
FINDINGS:
Mild cardiomegaly is identified.
The lungs are clear, without evidence of lobar pneumonia, pleural effusion, pneumothorax, or decompensated congestive heart failure.
Mild degenerative change is seen within the thoracic spine.
No radiographic evidence of free intraperitoneal air.
IMPRESSION:
1. Clear lungs.
2. No significant change compared to prior study.
Procedure findings :
-Left heart catheterization + Coronary angiography +Successful IVUS guided PCI of the ostial LAD ISR on 01/19/2025:
CONCLUSIONS
1. Right dominant circulation with an abnormal origin of the RCA requiring an AL-1 catheter for engagement, a 50% ostial RCA lesion, a 20% ISR lesion in the proximal RCA stent, a 50% mid RCA lesion, luminal irregularities at the crux, a 10% ISR
lesion of the RCA stent spanning the origin of the RPDA with mild RPDA narrowing, a 50% ostial circumflex lesion due to plaque shift from prior ostial LAD PCI, a 30% lesion in the mid LAD distal to the previously stented segment and a culprit, 90%
in-stent restenosis lesion in the ostial LAD stent, status post successful IVUS guided PCI (Xience raj point 3.5 x 12 STEVEN, postdilated with a 3.75 x 8 NC balloon to 16 ga) with reduction in stenosis to 0%, maintaining JESSE-3 flow in the LAD and
circumflex.
2. Normal filling pressures (LVEDP = 9 mmHg at 69.9 kg).
RECOMMENDATIONS:
1. Expectant management after cardiac catheterization via right radial approach.
2. Limited weight bearing on the right wrist for one week.
3. Continue dual antiplatelet therapy with aspirin and ticagrelor for at least 12 months, followed by aspirin indefinitely.
4. Careful symptom assessment given the plaque shift into the circumflex artery. If the patient were to develop angina, we could consider a circumflex intervention (likely a double barrel PCI with kissing balloons in the circumflex and LAD).
5. Aggressive secondary prevention with high-dose, high potency statin. Continue ezetimibe. Goal LDL <55.
6. OMT/GDMT as hemodynamics will tolerate.
7. Referral to cardiac rehab.
Discharge Plan
-
Patient Disposition: Home (Routine Discharge)
Discharge Diagnosis/Procedures: NSTEMI, s/p angioplasty and stent to Left Anterior Descending artery
Diet: Diabetic, Carb Controlled
Activity: As tolerated
Driving Restrictions: As prior to admission
Bathing Restrictions: None
Other Services: PT and Cardiac Rehab
Stand Alone Forms: DC Instructions- Cath/EP Lab
Referrals:
[facility]. Cardiac Rehab [Outside] - 03/03/25 1:00 pm
(Cardiac Rehab Orientation appointment is on Thursday03/03/25 at 1pm.
The Cardiac Rehab gym is located on the first floor of the [facility].)
Slim Ferris MD [Family Provider] - in less than 1 week
Kelly Ceja CRNP [Specified Professional Personl] - 02/15/25 2:20 pm (Cardiology followup appointment)
Prescriptions:
Continued
metoprolol succinate 50 MG tablet extended release 24 hr
50 mg PO HS
pioglitazone 45 MG tablet
45 mg PO DAILY
gemfibrozil 600 MG tablet
600 mg PO BID
Patient Comments:
PT TAKES AT 1100 AND 2100
metformin 1,000 MG tablet
1,000 mg PO BID
glipizide 5 MG tablet
5 mg PO DAILY
Januvia 100 MG tablet
100 mg PO DAILY
nitroglycerin 0.4 MG tablet, sublingual
0.4 mg sublingual [id number] PRN (Reason: cp)
pyridoxine (vitamin B6) 100 MG tablet
100 mg PO DAILY
cyanocobalamin (vitamin B-12) 100 mcg Tablet
100 mcg PO DAILY
famotidine 40 mg Tablet
40 mg PO DAILY
amlodipine 5 mg Tablet
5 mg PO DAILY
pantoprazole 20 mg Tablet,Delayed Release (Dr/Ec)
20 mg PO DAILY
levothyroxine 50 mcg Tablet
50 mcg PO DAILY
ferrous sulfate 325 mg (65 mg iron) Tablet
325 mg PO DAILY
aspirin 81 mg Tablet
81 mg PO DAILY
lisinopril 5 mg Tablet
5 mg PO DAILY
rosuvastatin 40 mg Tablet
40 mg PO DAILY
Brilinta 90 mg Tablet
90 mg PO BID Qty: 60 0RF
ezetimibe 10 mg Tablet
10 mg PO DAILY Qty: 30 0RF
Discharge Orders:
Discharge Patient (As Directed); Ordered 01/24/25
Ordered By: Evy Valadez
Care Plan Goals
Care Plan Goals:
Problem: Readiness for enhanced knowledge related to diagnosis and treatment plan
Goal: Understand your diagnosis and treatment plan needs, including medications if applicable.
Instructions: Know your diagnosis, underlying causes and treatment plan options, including medications if applicable. Consult with your health care team to learn about your diagnosis and treatment plan, including medications if applicable.
Discharge Date and Time
Discharge Date/Time: 01/24/25 15:30
Print Language: DANISH
[2025-01-24 11:23] VITALS: BP 103/58; BP 105/56; PULSE 73; O2SAT 97
[2025-01-24 11:45] VITALS: BP 117/68
--- NOTE | 2025-01-24 13:45 | PTCARENOTE ---
Patient worked with PT, did stairs and is ok for discharge. Reviewed discharge instructions with the patient and his and they state their understanding. Aware of post stent restrictions, follow up appointments and medications. Patient
discharged home with his .
== END 2025-01-24 15:30 | disposition home or self-care (01) | DRG 321 ==
LOC: IVU 23:29
PROVIDERS: Clinical Nurse Specialist Family Health; Internal Medicine; Internal Medicine Cardiovascular Disease; Physician Assistant; ADMITTING PHYSICIAN Hospitalist; ATTENDING PHYSICIAN Internal Medicine; CONSULT PHYSICIAN Internal Medicine Cardiovascular Disease; EMERGENCY PHYSICIAN Emergency Medicine; FAMILY PHYSICIAN Internal Medicine; REFERRING PHYSICIAN Internal Medicine
PROC: 027034Z Dilation of Coronary Artery, One Artery with Drug-eluting Intraluminal Device, Percutaneous Approach (ICD-10-PCS; 2025-01-23)
PROC: B240ZZ3 Ultrasonography of Single Coronary Artery, Intravascular (ICD-10-PCS; 2025-01-23)
PROC: B211YZZ Fluoroscopy of Multiple Coronary Arteries using Other Contrast (ICD-10-PCS; 2025-01-23)
PROC: 4A023N7 Measurement of Cardiac Sampling and Pressure, Left Heart, Percutaneous Approach (ICD-10-PCS; 2025-01-23)
DX: T82.855A Stenosis of coronary artery stent, initial encounter (principal); I21.4 Non-ST elevation (NSTEMI) myocardial infarction; I25.10 Atherosclerotic heart disease of native coronary artery without angina pectoris; E03.9 Hypothyroidism, unspecified; I12.9 Hypertensive chronic kidney disease with stage 1 through stage 4 chronic kidney disease, or unspecified chronic kidney disease; N18.31 Chronic kidney disease, stage 3a; E11.22 Type 2 diabetes mellitus with diabetic chronic kidney disease; D63.1 Anemia in chronic kidney disease; K21.9 Gastro-esophageal reflux disease without esophagitis; I49.3 Ventricular premature depolarization; I44.0 Atrioventricular block, first degree; E78.00 Pure hypercholesterolemia, unspecified; E53.8 Deficiency of other specified B group vitamins; M47.816 Spondylosis without myelopathy or radiculopathy, lumbar region; Z88.7 Allergy status to serum and vaccine; Z87.891 Personal history of nicotine dependence; Z82.49 Family history of ischemic heart disease and other diseases of the circulatory system; Z95.5 Presence of coronary angioplasty implant and graft; Z79.84 Long term (current) use of oral hypoglycemic drugs; Z79.890 Hormone replacement therapy; Z79.899 Other long term (current) drug therapy; Z79.82 Long term (current) use of aspirin; Z82.3 Family history of stroke; Y83.1 Surgical operation with implant of artificial internal device as the cause of abnormal reaction of the patient, or of later complication, without mention of misadventure at the time of the procedure
CPT/HCPCS: 71046; 80053; 80061; 82962; 83036; 83735; 84100; 84443; 84484; 85025; 85027; 85347; 85730; 87070; 92978; 93005; 93458; 96374; 97162; 99152; 99153; 99283; 99285; C1725; C1753; C1769; C1874; C1894; C9600; Q9967

== ENCOUNTER 2025-03-27 14:01 | Outpatient (RCR) | payer MEDICARE, OTHER, SELFPAY ==
[2025-03-03 14:29] LABS: Glucose - Point of Care 130 mg/dl (70-99)
[2025-03-03 14:37] LABS: Glucose - Point of Care 121 mg/dl (70-99)
[2025-03-06 13:11] LABS: Glucose - Point of Care 133 mg/dl (70-99)
[2025-03-06 13:49] LABS: Glucose - Point of Care 123 mg/dl (70-99)
[2025-03-08 13:18] LABS: Glucose - Point of Care 186 mg/dl (70-99)
[2025-03-08 13:53] LABS: Glucose - Point of Care 151 mg/dl (70-99)
[2025-03-13 13:15] LABS: Glucose - Point of Care 108 mg/dl (70-99)
[2025-03-13 14:04] LABS: Glucose - Point of Care 94 mg/dl (70-99)
[2025-03-15 13:15] LABS: Glucose - Point of Care 196 mg/dl (70-99)
[2025-03-15 13:57] LABS: Glucose - Point of Care 155 mg/dl (70-99)
[2025-03-20 13:12] LABS: Glucose - Point of Care 158 mg/dl (70-99)
[2025-03-20 13:53] LABS: Glucose - Point of Care 176 mg/dl (70-99)
[2025-03-22 13:09] LABS: Glucose - Point of Care 205 mg/dl (70-99)
[2025-03-22 13:47] LABS: Glucose - Point of Care 225 mg/dl (70-99)
== END 2025-03-27 23:59 | disposition home or self-care (01) ==
LOC: CRHB 14:01
PROVIDERS: ATTENDING PHYSICIAN Internal Medicine
DX: I21.4 Non-ST elevation (NSTEMI) myocardial infarction (principal); I25.2 Old myocardial infarction; Z95.5 Presence of coronary angioplasty implant and graft; I25.10 Atherosclerotic heart disease of native coronary artery without angina pectoris
CPT/HCPCS: 82962; G0422; G0423

== ENCOUNTER 2025-04-26 16:04 | Outpatient (RCR) | payer MEDICARE, OTHER, SELFPAY ==
[2025-04-10 13:30] LABS: Glucose - Point of Care 95 mg/dl (70-99)
[2025-04-10 14:01] LABS: Glucose - Point of Care 90 mg/dl (70-99)
[2025-04-12 13:21] LABS: Glucose - Point of Care 299 mg/dl (70-99)
[2025-04-12 14:05] LABS: Glucose - Point of Care 305 mg/dl (70-99)
[2025-04-19 13:11] LABS: Glucose - Point of Care 86 mg/dl (70-99)
[2025-04-19 13:35] LABS: Glucose - Point of Care 89 mg/dl (70-99)
[2025-04-19 14:11] LABS: Glucose - Point of Care 120 mg/dl (70-99)
[2025-04-26 13:23] LABS: Glucose - Point of Care 164 mg/dl (70-99)
[2025-04-26 15:36] LABS: Glucose - Point of Care 126 mg/dl (70-99)
== END 2025-04-26 23:59 | disposition home or self-care (01) ==
LOC: CRHB 16:04
PROVIDERS: ATTENDING PHYSICIAN Internal Medicine; FAMILY PHYSICIAN Internal Medicine
DX: I21.4 Non-ST elevation (NSTEMI) myocardial infarction (principal); I25.10 Atherosclerotic heart disease of native coronary artery without angina pectoris; I25.2 Old myocardial infarction; Z95.5 Presence of coronary angioplasty implant and graft
CPT/HCPCS: 82962; G0422; G0423

== ENCOUNTER 2025-05-29 14:29 | Outpatient (RCR) | payer MEDICARE, OTHER, SELFPAY ==
[2025-05-03 13:58] LABS: Glucose - Point of Care 130 mg/dl (70-99)
[2025-05-08 13:13] LABS: Glucose - Point of Care 133 mg/dl (70-99)
[2025-05-08 14:03] LABS: Glucose - Point of Care 129 mg/dl (70-99)
[2025-05-10 13:05] LABS: Glucose - Point of Care 152 mg/dl (70-99)
[2025-05-10 13:55] LABS: Glucose - Point of Care 94 mg/dl (70-99)
[2025-05-15 13:28] LABS: Glucose - Point of Care 183 mg/dl (70-99)
[2025-05-24 13:26] LABS: Glucose - Point of Care 168 mg/dl (70-99)
[2025-05-24 14:11] LABS: Glucose - Point of Care 148 mg/dl (70-99)
[2025-05-29 14:00] LABS: Glucose - Point of Care 154 mg/dl (70-99)
== END 2025-05-29 23:59 | disposition home or self-care (01) ==
LOC: CRHB 14:29
PROVIDERS: ATTENDING PHYSICIAN Internal Medicine; FAMILY PHYSICIAN Internal Medicine
DX: I25.10 Atherosclerotic heart disease of native coronary artery without angina pectoris (principal); I21.4 Non-ST elevation (NSTEMI) myocardial infarction (principal); I25.2 Old myocardial infarction; Z95.5 Presence of coronary angioplasty implant and graft
CPT/HCPCS: 82962; G0422; G0423

== ENCOUNTER 2025-06-09 13:20 | Outpatient (RCR) | payer MEDICARE, OTHER, SELFPAY | END 2025-06-09 16:37 | disposition home or self-care (01) | LOC: CRHB 13:20 | PROVIDERS: ATTENDING PHYSICIAN Internal Medicine; FAMILY PHYSICIAN Internal Medicine | DX: I21.4 Non-ST elevation (NSTEMI) myocardial infarction (principal); I25.10 Atherosclerotic heart disease of native coronary artery without angina pectoris; Z95.5 Presence of coronary angioplasty implant and graft; I25.2 Old myocardial infarction; T82.855A Stenosis of coronary artery stent, initial encounter; Y83.1 Surgical operation with implant of artificial internal device as the cause of abnormal reaction of the patient, or of later complication, without mention of misadventure at the time of the procedure | CPT/HCPCS: G0422; G0423 ==

== ENCOUNTER → 2025-06-19 13:58 | Outpatient (REF) | payer MEDICARE, OTHER, SELFPAY | LOC: HWRCS 13:58 | PROVIDERS: ATTENDING PHYSICIAN Internal Medicine; FAMILY PHYSICIAN Internal Medicine | DX: I25.10 Atherosclerotic heart disease of native coronary artery without angina pectoris (principal); I21.4 Non-ST elevation (NSTEMI) myocardial infarction | CPT/HCPCS: 93306 ==